=== PATIENT | male | born 1945 | race Caucasian/White ===

== ENCOUNTER 2021-07-14 07:58 | Emergency (ER) | payer MEDICARE ==
[2021-07-14 08:06] VITALS: BP 177/92; PULSE 86; RESP 18; TEMP 97.5
[2021-07-14] MEDS ORDERED: DIPH,PERTUS(ACELL)TETVAC-LF 0.5 ML VIAL IM ONE (08:12)
--- NOTE | 2021-07-14 08:21 | ED ---
General Adult HPI - General Chief complaint: Fall Stated complaint: Fall/Lip Lac Time Seen by Provider: 07/14/21 08:00 Source: patient Mode of arrival: ambulatory Limitations: no limitations - History of Present Illness Initial comments: Dictation was produced using [employer] dictation software. please excuse any grammatical, word or spelling errors. Chief Complaint: 75 year old male presents with lower lip laceration History of Present Illness: Patient is 75-year-old male presents to the emergency department for lower lip laceration. Patient states he tripped over some ice and fell off the porch. He struck his face on a solid object. Patient noticed that his lower lip was split open. Patient noted some bleeding. Came to the emergency department. The event happened approximately 2 hours prior to arrival. Patient does not know when his last tetanus shot was. States that he has some knee pain but is not worried about his knee pain. States that he felt his knees. He is able to ambulate. The ROS documented in this emergency department record has been reviewed and confirmed by me. Those systems with pertinent positive or negative responses have been documented in the HPI. All other systems are other negative and/or noncontributory. PHYSICAL EXAM: General Impression: Alert and oriented x3, not in acute distress HEENT: Normocephalic atraumatic, extra-ocular movements intact, pupils equal and reactive to light bilaterally, mucous membranes moist. Face: There is a complex lower lip laceration. In total measures approximately 12 cm area there is a vertical laceration and a lateral horizontal laceration that involves the vermilion border Cardiovascular: Heart regular rate and rhythm Chest: Able to complete full sentences, no retractions, no tachypnea Motor: no focal deficits noted Neurological: CN II-XII grossly intact, no focal motor or sensory deficits noted Skin: Intact with no visualized rashes Psych: Normal affect and mood ED course: 75-year-old male presents to the emergency department with complex lower lip laceration. Vital signs upon arrival are within acceptable limits. Case discussed with Dr. Velasco, on-call ENT who says that they do not do any soft tissue call. States that if oral surgery or general surgery does not want to repair it that patient should be transferred. Spoke with oral surgery, Dr. Pritchard states that this is not within his area of expertise. Case is discussed with [facility] doctor, Dr. Whatley. They do have facial plastics on-call there that would be willing to repair the laceration and establish care. Patient is agreeable plan. is at the bedside and will drive patient on to [facility]. They're given directions o f how to get down there. - Related Data Home Medications Medication Instructions Recorded Confirmed Aspirin [Adult Low Dose Aspirin EC] 81 mg PO DIRECTED 07/16/15 07/16/15 Benazepril HCl [Lotensin] 40 mg PO DAILY 07/16/15 07/19/15 Iron(Dose Unknown) 1 tab PO DAILY 07/16/15 07/16/15 amLODIPine BESYLATE [Norvasc] 10 mg PO DAILY 07/16/15 07/19/15 Previous Rx's Medication Instructions Recorded Clindamycin HCl 300 mg PO Q12HR #20 cap 07/19/15 Hydrocodone/Acetaminophen [[place] 1 - 2 each PO Q6HR PRN #40 tab 07/19/15 5-325] Allergies Allergy/AdvReac Type Severity Reaction Status Date / Time No Known Allergies Allergy Verified 07/14/21 08:05 Review of Systems ROS Statement: Those systems with pertinent positive or pertinent negative responses have been documented in the HPI. ROS Other: All systems not noted in ROS Statement are negative. Past Medical History Past Medical History: Cancer, Hypertension, Skin Disorder Additional Past Medical History / Comment(s): arrythmia, varicose veins, arthritis, skin cancer History of Any Multi-Drug Resistant Organisms: None Reported Past Surgical History: Tonsillectomy Additional Past Surgical History / Comment(s): removal of skin cancer, Past Anesthesia/Blood Transfusion Reactions: No Reported Reaction Past Psychological History: No Psychological Hx Reported Smoking Status: Never smoker Past Alcohol Use History: Rare Past Drug Use History: None Reported - Past Family History Mother Family Medical History: No Reported History General Exam Limitations: no limitations Course Vital Signs 07/14/21 08:01 Temperature 97.5 F L Pulse Rate 86 Respiratory 18 Rate Blood Pressure 177/92 O2 Sat by Pulse 94 L Oximetry Disposition Clinical Impression: Lip laceration Disposition: OTHER INSTITUTION NOT DEFINED Condition: Fair Referrals: None,Stated [Primary Care Provider] - 1-2 days - Out of Hospital Transfer - Req. Specs Out of Hospital Transfer - Requested Specifics: Other Emergency [facility] ([facility])
[2021-07-14] MEDS ORDERED: LIDOCAINE 1%-EPI 1:100,000 20 ML VIAL SQ STA (08:39)
== END 2021-07-14 10:03 | disposition other institution (70) ==
LOC: EC 07:58
DX: S01.511A Laceration without foreign body of lip, initial encounter (principal); Z79.899 Other long term (current) drug therapy; W13.0XXA Fall from, out of or through balcony, initial encounter
CPT/HCPCS: 90471; 90715; 99284

== ENCOUNTER 2022-06-21 14:44 | Inpatient (IN) | payer MEDICARE, OTHER ==
--- NOTE | 2022-06-21 17:05 | XR ---
EXAMINATION TYPE: XR chest 2V DATE OF EXAM: 06/21/2022 COMPARISON: NONE HISTORY: Short of breath TECHNIQUE: FINDINGS: There is mild pulmonary congestion. Heart is slightly enlarged. There is blunting of the co stophrenic angles. There is poor inspiration. IMPRESSION: Mild congestive heart failure with small pleural effusions and basilar atelectasis.
--- NOTE | 2022-06-21 17:59 | ED ---
SOB HPI - General Chief Complaint: Shortness of Breath Stated Complaint: TOMÁS Time Seen by Provider: 06/21/22 17:27 Source: patient, RN notes reviewed Mode of arrival: wheelchair Limitations: no limitations - History of Present Illness Initial Comments: 76-year-old male with no prior history of heart or lung disease who states he had COVID-19 approximately 2 weeks ago he states since that time though he started developing worsening shortness of breath exertional dyspnea orthopnea a slight cough with clear phlegm he also has peripheral edema but this is not new to him. No palpitations no fevers chills nausea vomiting sweats no other symptoms other than decreased oral intake and decreased appetite. MD Complaint: shortness of breath - Related Data Home Medications Medication Instructions Recorded Confirmed Aspirin [Adult Low Dose Aspirin EC] 81 mg PO DIRECTED 07/16/15 07/16/15 Benazepril HCl [Lotensin] 40 mg PO DAILY 07/16/15 07/19/15 Iron(Dose Unknown) 1 tab PO DAILY 07/16/15 07/16/15 amLODIPine BESYLATE [Norvasc] 10 mg PO DAILY 07/16/15 07/19/15 Previous Rx's Medication Instructions Recorded Hydrocodone/Acetaminophen [[place] 1 - 2 each PO Q6HR PRN #40 tab 07/19/15 5-325] clindamycin HCL [Clindamycin HCl] 300 mg PO Q12HR #20 cap 07/19/15 Allergies Allergy/AdvReac Type Severity Reaction Status Date / Time No Known Allergies Allergy Verified 07/14/21 08:05 Review of Systems ROS Statement: Those systems with pertinent positive or pertinent negative responses have been documented in the HPI. ROS Other: All systems not noted in ROS Statement are negative. Past Medical History Past Medical History: Cancer, Hypertension, Skin Disorder Additional Past Medical History / Comment(s): arrythmia, varicose veins, arthritis, skin cancer History of Any Multi-Drug Resistant Organisms: None Reported Past Surgical History: Tonsillectomy Additional Past Surgical History / Comment(s): removal of skin cancer, Past Anesthesia/Blood Transfusion Reactions: No Reported Reaction Past Psychological History: No Psychological Hx Reported Smoking Status: Never smoker Past Alcohol Use History: Rare Past Drug Use History: None Reported - Past Family History Mother Family Medical History: No Reported History General Exam - General Exam Comments Initial Comments: This is a well-developed well-nourished awake alert oriented 4 male Limitations: no limitations General appearance: alert, in no apparent distress Head exam: Present: atraumatic, normocephalic, normal inspection Eye exam: Present: normal appearance, PERRL, EOMI. Absent: scleral icterus, conjunctival injection, periorbital swelling ENT exam: Present: normal exam, mucous membranes moist Neck exam: Present: normal inspection, full ROM, other (No stridor JVD or bruits). Absent: tenderness, meningismus, lymphadenopathy Respiratory exam: Present: decreased breath sounds. Absent: respiratory distress, wheezes, rales, rhonchi, stridor Cardiovascular Exam: Present: tachycardia. Absent: systolic murmur, diastolic murmur, rubs, gallop, clicks GI/Abdominal exam: Present: soft, normal bowel sounds. Absent: distended, tenderness, guarding, rebound, rigid Extremities exam: Present: full ROM, normal capillary refill, pedal edema. Absent: tenderness, joint swelling, calf tenderness Back exam: Present: normal inspection Neurological exam: Present: alert, oriented X3, CN II-XII intact Psychiatric exam: Present: normal affect, normal mood Skin exam: Present: warm, dry, intact, normal color. Absent: rash Course Vital Signs 06/21/22 06/21/22 06/21/22 16:35 17:41 18:49 Temperature 97.8 F Pulse Rate 96 129 H Pulse Rate [ Marketing Administrative Assistant ] Respiratory 24 20 22 Rate Blood Pressure 133/97 Blood Pressure [Left Arm] O2 Sat by Pulse 93 L 95 Oximetry 06/21/22 06/21/22 06/21/22 18:50 19:00 19:55 Temperature Pulse Rate 137 H 124 H Pulse Rate [ 103 H Marketing Administrative Assistant ] Respiratory 22 20 22 Rate Blood Pressure 121/98 Blood Pressure 110/91 [Left Arm] O2 Sat by Pulse 94 L 87 L Oximetry 06/21/22 19:57 Temperature Pulse Rate Pulse Rate [ Marketing Administrative Assistant ] Respiratory Rate Blood Pressure Blood Pressure [Left Arm] O2 Sat by Pulse 95 Oximetry - Reevaluation(s) Reevaluation #1: 06/21/22 20:19 I did have several discussions with the patient family regarding findings patient does have evidence of A. fib RVR with his new onset as well as CHF with bilateral pleural effusions. Also elevated d-dimer with no CT evidence of pulmonary embolus. Medical Decision Making - Medical Decision Making Did reevaluate patient on multiple occasions and did discuss the findings with the patient family patient has evidence of new onset A. fib with RVR also CHF wi th right lateral pleural effusions elevated d-dimer however the CAT scan is negative for evidence of pulmonary emboli also mildly elevated troponin. Patient did respond to medication the heart rate has improved to the low 100s to the high 90s. Patient be admitted with cardiology consultation. Ultrasound of the lower extremities is ordered. I did discuss the case with Dr. Thomson. - Lab Data Result diagrams: 06/21/22 17:58 06/21/22 17:58 Lab Results 06/21/22 06/21/22 06/21/22 Range/Units 17:58 17:58 17:58 WBC 8.7 (3.8-10.6) k/uL RBC 5.09 (4.30-5.90) m/uL Hgb 17.3 (13.0-17.5) gm/dL Hct 50.6 (39.0-53.0) % MCV 99.4 (80.0-100.0) fL MCH 33.9 (25.0-35.0) pg MCHC 34.1 (31.0-37.0) g/dL RDW 14.9 (11.5-15.5) % Plt Count 193 (150-450) k/uL MPV 8.5 Neutrophils % 84 % Lymphocytes % 8 % Monocytes % 4 % Eosinophils % 0 % Basophils % 0 % Neutrophils # 7.3 (1.3-7.7) k/uL Lymphocytes # 0.7 L (1.0-4.8) k/uL Monocytes # 0.4 (0-1.0) k/uL Eosinophils # 0.0 (0-0.7) k/uL Basophils # 0.0 (0-0.2) k/uL Macrocytosis Slight PT 11.5 (9.0-12.0) sec INR 1.1 (<1.2) APTT 22.7 (22.0-30.0) sec D-Dimer 4.47 H (<0.60) mg/L FEU Sodium 139 (137-145) mmol/L Potassium 4.4 (3.5-5.1) mmol/L Chloride 106 (98-107) mmol/L Carbon Dioxide 28 (22-30) mmol/L Anion Gap 5 mmol/L BUN 27 H (9-20) mg/dL Creatinine 0.93 (0.66-1.25) mg/dL Est GFR (CKD-EPI)AfAm >90 (>60 ml/min/1.73 sqM) Est GFR (CKD-EPI)NonAf 79 (>60 ml/min/1.73 sqM) Glucose 145 H (74-99) mg/dL Plasma Lactic Acid Hernan (0.7-2.0) mmol/L Calcium 10.7 H (8.4-10.2) mg/dL Magnesium 2.0 (1.6-2.3) mg/dL Total Bilirubin 0.8 (0.2-1.3) mg/dL AST 24 (17-59) U/L ALT 23 (4-49) U/L Alkaline Phosphatase 89 (38-126) U/L Troponin I (0.000-0.034) ng/mL NT-Pro-B Natriuret Pep pg/mL Total Protein 7.0 (6.3-8.2) g/dL Albumin 4.1 (3.5-5.0) g/dL 06/21/22 06/21/22 06/21/22 Range/Units 17:58 17:58 17:58 WBC (3.8-10.6) k/uL RBC (4.30-5.90) m/uL Hgb (13.0-17.5) gm/dL Hct (39.0-53.0) % MCV (80.0-100.0) fL MCH (25.0-35.0) pg MCHC (31.0-37.0) g/dL RDW (11.5-15.5) % Plt Count (150-450) k/uL MPV Neutrophils % % Lymphocytes % % Monocytes % % Eosinophils % % Basophils % % Neutrophils # (1.3-7.7) k/uL Lymphocytes # (1.0-4.8) k/uL Monocytes # (0-1.0) k/uL Eosinophils # (0-0.7) k/uL Basophils # (0-0.2) k/uL Macrocytosis PT (9.0-12.0) sec INR (<1.2) APTT (22.0-30.0) sec D-Dimer (<0.60) mg/L FEU Sodium (137-145) mmol/L Potassium (3.5-5.1) mmol/L Chloride (98-107) mmol/L Carbon Dioxide (22-30) mmol/L Anion Gap mmol/L BUN (9-20) mg/dL Creatinine (0.66-1.25) mg/dL Est GFR (CKD-EPI)AfAm (>60 ml/min/1.73 sqM) Est GFR (CKD-EPI)NonAf (>60 ml/min/1.73 sqM) Glucose (74-99) mg/dL Plasma Lactic Acid Hernan 1.2 (0.7-2.0) mmol/L Calcium (8.4-10.2) mg/dL Magnesium (1.6-2.3) mg/dL Total Bilirubin (0.2-1.3) mg/dL AST (17-59) U/L ALT (4-49) U/L Alkaline Phosphatase (38-126) U/L Troponin I 0.045 H* (0.000-0.034) ng/mL NT-Pro-B Natriuret Pep 2650 pg/mL Total Protein (6.3-8.2) g/dL Albumin (3.5-5.0) g/dL - EKG Data -: EKG Interpreted by Co EKG Comments: Atrial fibrillation with a rapid ventricular response rate 123 QRS 170 QT since QTC 339/412 left exodeviation right bundle-branch block minimal voltage criteria for LVH - Radiology Data Radiology results: image reviewed (Did review the imaging x-ray shows evidence of CHF with pleural effusions CAT scan negative for evidence of pulmonary emboli however the same findings as he x-ray.) Critical Care Time Critical Care Time: Yes Total Critical Care Time: 45 Critical Care Time: Critical care time includes initial presentation with history physical labs x- rays multiple reevaluation patient responsive therapy review of old charting was available discussed with the patient multiple occasions discussion with the main physician admission orders and documentation of the above Disposition Clinical Impression: Rapid atrial fibrillation, Congestive heart failure (CHF), Elevated d-dimer, Elevated troponin, Peripheral edema, Exertional dyspnea Disposition: ADMITTED IP TO THIS [facility] Condition: Fair Referrals: Daivd Moe MD [Primary Care Provider] - 1-2 days Decision Date: 06/21/22 Decision Time: 20:00
[2022-06-21 18:25] LABS: Basophils % (A) 0 %; Eosinophils % (A) 0 %; HCT 50.6 % (39.0-53.0); HGB 17.3 gm/dL (13.0-17.5); Lymphocytes # (A) 0.7 k/uL (1.0-4.8); Lymphocytes % (A) 8 %; MCH 33.9 pg (25.0-35.0); MCHC 34.1 g/dL (31.0-37.0); MCV 99.4 fL (80.0-100.0); Macrocytosis Slight; Mean Platelet Volume 8.5; Monocytes # (A) 0.4 k/uL (0-1.0); Monocytes % (A) 4 %; Neutrophils # (A) 7.3 k/uL (1.3-7.7); Neutrophils % (A) 84 %; Platelet Count 193 k/uL (150-450); RBC 5.09 m/uL (4.30-5.90); RDW 14.9 % (11.5-15.5); WBC 8.7 k/uL (3.8-10.6)
[2022-06-21] MEDS ORDERED: FUROSEMIDE 10 MG/ML 4 ML VIAL IV STA (18:25)
[2022-06-21] MEDS ORDERED: METOPROLOL TARTRATE 5 MG/5 ML VIAL IVP STA (18:26)
[2022-06-21 18:29] LABS: ALT 23 U/L (4-49); AST 24 U/L (17-59); African American GFR (CKD) >90 (>60 ml/min/1.73 sqM); Albumin 4.1 g/dL (3.5-5.0); Alkaline Phosphatase 89 U/L (38-126); Anion Gap 5 mmol/L; Blood Urea Nitrogen 27 mg/dL (9-20); Calcium 10.7 mg/dL (8.4-10.2); Carbon Dioxide 28 mmol/L (22-30); Chloride 106 mmol/L (98-107); Glucose 145 mg/dL (74-99); Non-African American GFR(CKD) 79 (>60 ml/min/1.73 sqM); Potassium 4.4 mmol/L (3.5-5.1); Sodium 139 mmol/L (137-145); Total Bilirubin 0.8 mg/dL (0.2-1.3)
[2022-06-21 18:40] LABS: INR 1.1 (<1.2); Partial Thromboplastin Time 22.7 sec (22.0-30.0); Prothrombin Time 11.5 sec (9.0-12.0)
--- NOTE | 2022-06-21 19:34 | CT ---
EXAMINATION TYPE: CT angio chest DATE OF EXAM: 06/21/2022 COMPARISON: None HISTORY: PE suspected CT DLP: 873.5 mGycm Automated exposure control for dose reduction was used. CONTRAST: Performed with IV Contrast, patient injected with 100cc mL of Isovue 370. Images obtained from the thoracic inlet to the diaphragm with the IV contrast. There are Three-D post processed images. There are bilateral moderate pleural effusions. Heart is enlarged. No pericardial effusion. There is some infiltrate and atelectasis at both lung bases. There is no evidence of filling defect in the pulmonary arteries. Thoracic aorta is intact. No aneurysm or dissection. No mediastinal adenopathy. There are no hilar ma sses. Thoracic spine is intact. No compression fracture. Sternum is intact. IMPRESSION: No evidence of pulmonary embolism. Cardiomegaly with pleural effusions and mild infiltrate and atelec tasis at the lung bases. This could be chronic congestive heart failure.
[2022-06-21] MEDS ORDERED: HEPARIN SODIUM 1,000 UN/ML (10ML VL) IV ONE (20:19)
[2022-06-21] MEDS ORDERED: HEPARIN SODIUM 1,000 UN/ML (10ML VL) IV PRN (20:19)
[2022-06-21] MEDS ORDERED: ASPIRIN 325 MG TAB PO STA (20:34)
[2022-06-21] MEDS: HEPARIN SOD,PORK IN 0.45% NACL 25,000 UNIT in 0.45% NACL 1 250ML.BAG IV SCH (20:58)
[2022-06-21 21:58] LABS: INR 1.1 (<1.2); Prothrombin Time 11.9 sec (9.0-12.0)
--- NOTE | 2022-06-21 22:00 | US ---
EXAMINATION TYPE: US venous doppler duplex LE BI DATE OF EXAM: 06/21/2022 8:16 PM COMPARISON: NONE CLINICAL HISTORY: DVT suspected. Covid 2 weeks ago. Elevated ddimer. Bilateral leg swelling. No re dness. SIDE PERFORMED: Bilateral TECHNIQUE: The lower extremity deep venous system is examined utilizing real time linear array sonog yumiko with graded compression, doppler sonography and color-flow sonography. VESSELS IMAGED: Common Femoral Vein Deep Femoral Vein Greater Saphenous Vein * Femoral Vein Popliteal Vein Small Saphenous Vein * Proximal Calf Veins- Limited due to swelling (* superficial vessels) Right Leg: Negative for DVT Left Leg: Negative for DVT IMPRESSION: No sign of deep vein thrombosis in both legs.
[2022-06-21] MEDS: FUROSEMIDE 10 MG/ML 4 ML VIAL IV SCH (22:09)
[2022-06-21] MEDS: NITROGLYCERIN OINT 1 INCH/GM PACKET TOPICAL SCH (22:10)
[2022-06-21 22:11] LABS: Partial Thromboplastin Time 21.4 sec (22.0-30.0)
[2022-06-21] MEDS ORDERED: HYDROcodone/APAP 5-325MG 1 EACH TAB PO PRN (22:19)
[2022-06-21 22:54] LABS: Basophils % (A) 0 %; Eosinophils % (A) 0 %; HCT 52.9 % (39.0-53.0); HGB 17.2 gm/dL (13.0-17.5); Lymphocytes # (A) 0.6 k/uL (1.0-4.8); Lymphocytes % (A) 8 %; MCH 32.8 pg (25.0-35.0); MCHC 32.5 g/dL (31.0-37.0); MCV 100.9 fL (80.0-100.0); Macrocytosis Slight; Mean Platelet Volume 8.7; Monocytes # (A) 0.5 k/uL (0-1.0); Monocytes % (A) 6 %; Neutrophils # (A) 6.3 k/uL (1.3-7.7); Neutrophils % (A) 83 %; Platelet Count 182 k/uL (150-450); RBC 5.24 m/uL (4.30-5.90); RDW 14.9 % (11.5-15.5); WBC 7.6 k/uL (3.8-10.6)
--- NOTE | 2022-06-22 00:46 | P.HPIM ---
History of Present Illness H&P Date: 06/21/22 Chief Complaint: sudden SOB 76 year old male with hypertension patient comes in after experiencing sudden onset shortness of breath, while resting doing nothing, associated with dizziness and heart racing , denies any chest pain, denies experiencing anything like this before, he admits to falls but nothing recent. denies any fever, chills, URI symptoms. He was diagnosed with COVID couple weeks ago, but claims his symptoms has since resolved. he denies any recent travel or hospital stay . denies any changes in his meds. he admits to chronic bilateral leg edema. workup in the ED showed afib with RVR, elevated trops elevated d dimer, CTA chest no acute PE , venous doppler US of the legs negative for acute DVT blood work showed mild hypercalcemia elevated trops , ProBNP, d dimer chest imaging showed pulmonary vascular congestion and small pleural effusion Review of Systems Pertinent positives as noted in HPI. All other systems were reviewed and are negative Past Medical History Past Medical History: Cancer, Hypertension, Skin Disorder Additional Past Medical History / Comment(s): arrythmia, varicose veins, arthritis, skin cancer History of Any Multi-Drug Resistant Organisms: None Reported Past Surgical History: Tonsillectomy Additional Past Surgical History / Comment(s): removal of skin cancer, Past Anesthesia/Blood Transfusion Reactions: No Reported Reaction Smoking Status: Never smoker - Past Family History Mother Family Medical History: No Reported History Additional Family Medical History / Comment(s): no reported heart disease Medications and Allergies Home Medications Medication Instructions Recorded Confirmed Type Aspirin [Adult Low Dose Aspirin EC] 81 mg PO DAILY 07/16/15 06/21/22 History amLODIPine BESYLATE [Norvasc] 10 mg PO DAILY 07/16/15 06/21/22 History Dorzolamide HCl/Pf [Dorzolamide 2% 1 drop BOTH EYES BID 06/21/22 06/21/22 History Eye Drop] Latanoprost [Latanoprost 0.005%] 1 drop BOTH EYES HS 06/21/22 06/21/22 History Losartan Potassium 100 mg PO DAILY 06/21/22 06/21/22 History Allergies Allergy/AdvReac Type Severity Reaction Status Date / Time No Known Allergies Allergy Verified 06/21/22 20:55 Physical Exam Vitals: Vital Signs Temp Pulse Pulse Resp BP BP Pulse Ox 06/21/22 22:16 97.4 F L 85 18 136/83 95 06/21/22 21:03 101 H 24 114/96 95 06/21/22 21:00 97.4 F L 85 16 136/83 95 06/21/22 19:57 95 06/21/22 19:55 103 H 22 110/91 87 L 06/21/22 19:00 124 H 20 121/98 06/21/22 18:50 137 H 22 94 L 06/21/22 18:49 129 H 22 95 06/21/22 17:41 20 06/21/22 16:35 97.8 F 96 24 133/97 93 L Intake and Output 06/21/22 06/21/22 06/22/22 14:59 22:59 06:59 Intake Total 540 Balance 540 Intake: Oral 540 Other: Weight 140.614 kg Constitutional: No acute distress, conversant, pleasant Eyes: Anicteric sclerae, moist conjunctiva, Pupils equal round reactive to light ENMT: NC/AT Oropharynx clear, no erythema, or exudates Neck: Supple, no masses, or JVD No carotid bruits No thyromegaly Lungs: decrease breath sounds at lung bases with inspiratory rales Clear to percussion Normal respiratory effort, no accessory muscle use Cardiovascular: Heart irregular No murmurs, gallops, or rubs + 2 bilateral leg peripheral edema Abdominal: Soft Nontender, no guarding, rebound or rigidity Abdomen moving with respiration Normoactive bowel sounds No hepatomegaly, No splenomegaly No palpable mass No abdominal wall hernia noted Skin: Normal temperature, tone, texture, turgor No induration No subcutaneous nodules No rash, lesions No ulcers Extremities: No digital cyanosis No clubbing Pedal pulses difficult to assess due to pedal edema , capillary refill immediate Radial pulses intact and symmetrical No calf tenderness Psychiatric: Alert and oriented to person, place Neuro Muscles Strength 4/5 in all 4 extremities Sensation to light touch grossly present throughout Cranial nerves II-XII grossly intact Lymphatics: no palpable cervical or supraclavicular , lymph nodes Results CBC & Chem 7: 06/21/22 20:50 06/21/22 17:58 Labs: Abnormal Lab Results - Last 24 Hours (Table) 06/21/22 06/21/22 06/21/22 Range/Units 17:58 17:58 17:58 MCV (80.0-100.0) fL Lymphocytes # 0.7 L (1.0-4.8) k/uL APTT (22.0-30.0) sec D-Dimer 4.47 H (<0.60) mg/L FEU BUN 27 H (9-20) mg/dL Glucose 145 H (74-99) mg/dL Calcium 10.7 H (8.4-10.2) mg/dL Troponin I (0.000-0.034) ng/mL 06/21/22 06/21/22 06/21/22 Range/Units 17:58 20:50 20:50 MCV 100.9 H (80.0-100.0) fL Lymphocytes # 0.6 L (1.0-4.8) k/uL APTT 21.4 L (22.0-30.0) sec D-Dimer (<0.60) mg/L FEU BUN (9-20) mg/dL Glucose (74-99) mg/dL Calcium (8.4-10.2) mg/dL Troponin I 0.045 H* (0.000-0.034) ng/mL 06/21/22 06/21/22 Range/Units 20:50 23:40 MCV (80.0-100.0) fL Lymphocytes # (1.0-4.8) k/uL APTT (22.0-30.0) sec D-Dimer (<0.60) mg/L FEU BUN (9-20) mg/dL Glucose (74-99) mg/dL Calcium (8.4-10.2) mg/dL Troponin I 0.046 H* 0.044 H* (0.000-0.034) ng/mL Thrombosis Risk Factor Assmnt - Choose All That Apply Any of the Below Risk Factors Present?: Yes Each Factor Represents 1 point: Obesity (BMI >25), Varicose veins Other Risk Factors: Yes Each Risk Factor Represents 3 Points: Age 75 years or older Other congenital or acquired thrombophilia - If yes, enter type in comment: No Thrombosis Risk Factor Assessment Total Risk Factor Score: 5 Thrombosis Risk Factor Assessment Level: High Risk Assessment and Plan Assessment: new onset Afib with RVR peripheral edema with fluid overload, rule out CHF plan currently rate controlled heparin infusion for afib protocol trend trops elevated d dimer , CTA chest no acute PE , venous doppler US of the legs negative for DVT arbitrator cardiology consult check echocardiogram IV lasix BID metoprolol 25 mg PO daily chronic conditions chronic pain , [place] PRN hypertension , resume home BP meds amlodipine , losartan full code DVT PPX heparin gtt for afib
[2022-06-22] MEDS ORDERED: METOPROLOL TARTRATE 25 MG TAB PO STA (00:47)
[2022-06-22 02:37] LABS: Basophils % (A) 0 %; Eosinophils % (A) 0 %; HGB 16.2 gm/dL (13.0-17.5); Lymphocytes # (A) 0.5 k/uL (1.0-4.8); Lymphocytes % (A) 7 %; MCH 33.9 pg (25.0-35.0); MCHC 33.6 g/dL (31.0-37.0); MCV 100.7 fL (80.0-100.0); Macrocytosis Slight; Mean Platelet Volume 8.3; Monocytes # (A) 0.5 k/uL (0-1.0); Monocytes % (A) 6 %; Neutrophils # (A) 6.6 k/uL (1.3-7.7); Neutrophils % (A) 84 %; Platelet Count 194 k/uL (150-450); RBC 4.77 m/uL (4.30-5.90); RDW 14.3 % (11.5-15.5); WBC 7.9 k/uL (3.8-10.6)
[2022-06-22 02:49] LABS: INR 1.2 (<1.2); Prothrombin Time 12.3 sec (9.0-12.0)
[2022-06-22] MEDS: FUROSEMIDE 10 MG/ML 4 ML VIAL IV SCH ×2 (08:57→19:53)
[2022-06-22] MEDS: ASPIRIN 81 MG PO SCH (08:58)
[2022-06-22] MEDS: NITROGLYCERIN OINT 1 INCH/GM PACKET TOPICAL SCH ×4 (08:58→19:53)
[2022-06-22] MEDS: LOSARTAN 50 MG TAB PO SCH (08:58)
[2022-06-22] MEDS: METOPROLOL SUCCINATE (ER) 25 MG TAB.ER.24H PO SCH (08:58)
[2022-06-22] MEDS: amLODIPine 10 MG TAB PO SCH (08:58)
[2022-06-22] MEDS: ASPIRIN 325 MG TAB PO SCH (08:59)
--- NOTE | 2022-06-22 13:07 | P.PN ---
Subjective Progress Note Date: 06/22/22 Principal diagnosis: SOB Hospital Course: 76-year-old with history of hypertension presenting with shortness of breath at rest, lightheadedness, palpitations. He was recently diagnosed with COVID-19 couple of weeks ago. On initial presentation, he was tachycardic, in A. fib with RVR. Lab work showed mildly elevated troponin, proBNP, d-dimer, mild hypercalcemia. CTA showed no PE, cardiomegaly with pleural effusions and mild infiltrate and atelectasis at lung bases suggesting CHF. Patient currently being treated with IV Lasix as well as rate control agents for A. fib with RVR, and anticoagulated with heparin drip. Subjective: Patient seen and examined at bedside. No acute events overnight. He claims that shortness of breath has slightly improved. Denies any chest pain, palpitations, lightheadedness, nausea, vomiting, abdominal pain, diarrhea, constipation, or urinary complaints. Pertinent positives and negatives as discussed above, a complete review of systems was performed and all other systems are negative. Vitals Signs Reviewed. General: nontoxic, no distress, appears at stated age, morbidly obese Derm: warm, dry Head: atraumatic, normocephalic, symmetric Eyes: EOMI, no lid lag, anicteric sclera Mouth: no lip lesion, mucus membranes moist Cardiovascular: S1S2 tachycardic and irregular, no murmur Lungs: CTA bilateral, no rhonchi, no rales , no accessory muscle use, on 2 L Abdominal: soft, nontender to palpation, no guarding, no appreciable organomegaly Ext: no gross muscle atrophy, no edema, no contractures Neuro: CN II-XI grossly intact, no focal neuro deficits Psych: Alert, oriented, appropriate affect Assessment and Plan: New onset atrial fibrillation with RVR Pulmonary edema, likely CHF exacerbation, unknown EF Elevated troponin Elevated d-dimer, CTA negative for PE -On heparin drip -Metoprolol -Telemetry -IV Lasix, I's and O's, daily weights -Cardiology consult -Echo pending Chronic conditions Chronic pain Hypertension -Medications reviewed and reconciled DVT ppx: Heparin drip Code status: Full code Anticipated discharge place: Home Anticipated discharge time: 1-2 days Objective - Vital Signs Vital signs: Vital Signs Temp 98.4 F 06/22/22 12:00 Pulse 91 06/22/22 12:00 Resp 20 06/22/22 12:00 BP 119/60 06/22/22 12:00 Pulse Ox 95 06/22/22 12:00 FiO2 Intake & Output 06/21/22 06/22/22 06/22/22 18:59 06:59 18:59 Intake Total 602.333 240 Output Total 475 Balance 127.333 240 Weight 140.614 kg 140.614 kg Intake: Intake, IV Titration 62.333 Amount Heparin Sod,Pork in 0.45% 62.333 NaCl 25,000 unit In 0.45 % NaCl 1 250ml.bag @ 7. 112 UNITS/KG/HR 10 mls/hr IV .Q24H [facility] Rx#: [id number] Oral 540 240 Output: Urine 475 Other: Voiding Method Toilet Toilet Urinal Urinal - Labs CBC & Chem 7: 06/22/22 02:07 06/21/22 17:58 Labs: Abnormal Lab Results - Last 24 Hours (Table) 06/21/22 06/21/22 06/21/22 Range/Units 17:58 17:58 17:58 MCV (80.0-100.0) fL Lymphocytes # 0.7 L (1.0-4.8) k/uL PT (9.0-12.0) sec INR (<1.2) APTT (22.0-30.0) sec D-Dimer 4.47 H (<0.60) mg/L FEU BUN 27 H (9-20) mg/dL Glucose 145 H (74-99) mg/dL Calcium 10.7 H (8.4-10.2) mg/dL Troponin I (0.000-0.034) ng/mL 06/21/22 06/21/22 06/21/22 Range/Units 17:58 20:50 20:50 MCV 100.9 H (80.0-100.0) fL Lymphocytes # 0.6 L (1.0-4.8) k/uL PT (9.0-12.0) sec INR (<1.2) APTT 21.4 L (22.0-30.0) sec D-Dimer (<0.60) mg/L FEU BUN (9-20) mg/dL Glucose (74-99) mg/dL Calcium (8.4-10.2) mg/dL Troponin I 0.045 H* (0.000-0.034) ng/mL 06/21/22 06/21/22 06/22/22 Range/Units 20:50 23:40 02:07 MCV (80.0-100.0) fL Lymphocytes # (1.0-4.8) k/uL PT 12.3 H (9.0-12.0) sec INR 1.2 H (<1.2) APTT 34.0 H (22.0-30.0) sec D-Dimer (<0.60) mg/L FEU BUN (9-20) mg/dL Glucose (74-99) mg/dL Calcium (8.4-10.2) mg/dL Troponin I 0.046 H* 0.044 H* (0.000-0.034) ng/mL 06/22/22 06/22/22 Range/Units 02:07 08:28 MCV 100.7 H (80.0-100.0) fL Lymphocytes # 0.5 L (1.0-4.8) k/uL PT (9.0-12.0) sec INR (<1.2) APTT 46.0 H (22.0-30.0) sec D-Dimer (<0.60) mg/L FEU BUN (9-20) mg/dL Glucose (74-99) mg/dL Calcium (8.4-10.2) mg/dL Troponin I (0.000-0.034) ng/mL
--- NOTE | 2022-06-22 13:24 | P.CRDCN ---
History of Present Illness History of present illness: HISTORY OF PRESENTING ILLNESS Patient is pleasant 76-year-old male with history of obesity, new-onset atrial fibrillation, recent COVID-19 infection 3 weeks ago who presents secondary to increasing shortness breath as well as lower extremity edema and loss of taste over last 2 weeks. He states he did see his PCP who thought some of this may be related to the [facility]. He denies any prior history of lower extremity edema. He admits to shortness breath as well as some orthopnea. Denies any chest pain however has been having some pressure/tightness. No history of tobacco, alcohol, no family history of CAD. No prior history of atrial fibrillation and no history of stroke. White blood cell count 8.7, hemoglobin 17.3, d-dimer 4.4, creatinine 0.9, troponin 0.043, proBNP 2600, Chest CTA showed no PE with cardiomegaly and pleural effusions consistent with congestive heart failure. EKG showing atrial fibrillation, right bundle branch block with nonspecific minimal ST depressions REVIEW OF SYSTEMS At the time of my exam: CONSTITUTIONAL: Denies fever or chills. CARDIOVASCULAR: +chest pain, +shortness of breath, +orthopnea, no PND or palpitations. RESPIRATORY: Denies cough. GASTROINTESTINAL: Denies abdominal pain, diarrhea, constipation, nausea or vomiting. MUSCULOSKELETAL: Denies myalgias. NEUROLOGIC: Denies numbness, tingling or weakness. ENDOCRINE: Denies fatigue, weight change, polydipsia or polyurina. GENITOURINARY: Denies burning, hematuria or urgency with micturation. HEMATOLOGIC: Denies history of anemia or bleeding. PHYSICAL EXAMINATION Vital signs reviewed. CONSTITUTIONAL: No apparent distress. HEENT: Head is normocephalic. Pupils are equal, round. Sclerae anicteric. Mucous membranes of the mouth are moist. No JVD. No carotid bruit. CHEST EXAMINATION: Lungs are clear to auscultation. No chest wall tenderness is noted on palpation or with deep breathing. HEART EXAMINATION: Irregular rate and rhythm. S1, S2 heard. No murmurs, gallops or rub. ABDOMEN: Soft, nontender. Positive bowel sounds. EXTREMITIES: 2+ peripheral pulses, 3+ lower extremity edema and no calf tenderness. NEUROLOGIC EXAMINATION: Patient is awake, alert and oriented x3. ASSESSMENT 1. Acute on chronic heart failure unknown systolic versus diastolic 2. Atrial fibrillation with RVR. Symptomatic with heart failure 3. Recent COVID-19 infection 3 weeks ago 4. Hypertension 5. Atypical chest pressure 6. Minimal troponin elevations likely related to heart failure PLAN Minimally elevated troponins appear related to congestive heart failure. Continue with diuretics. Monitor creatinine closely. 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 Check 2-D echo. Discussed role of anticoagulation and patient is agreeable. Continue heparin drip for now and likely transition over to a NOAC. Start amiodarone and attempt rhythm control given patient significantly symptomatic from his Afib. Possible ablation as an outpt. [] Past Medical History Past Medical History: Cancer, Hypertension, Skin Disorder Additional Past Medical History / Comment(s): arrythmia, varicose veins, arthritis, skin cancer History of Any Multi-Drug Resistant Organisms: None Reported Past Surgical History: Tonsillectomy Additional Past Surgical History / Comment(s): removal of skin cancer, Past Anesthesia/Blood Transfusion Reactions: No Reported Reaction Smoking Status: Never smoker - Past Family History Mother Family Medical History: No Reported History Additional Family Medical History / Comment(s): no reported heart disease Medications and Allergies Home Medications Medication Instructions Recorded Confirmed Type Aspirin [Adult Low Dose Aspirin EC] 81 mg PO DAILY 07/16/15 06/21/22 History amLODIPine BESYLATE [Norvasc] 10 mg PO DAILY 07/16/15 06/21/22 History Dorzolamide HCl/Pf [Dorzolamide 2% 1 drop BOTH EYES BID 06/21/22 06/21/22 History Eye Drop] Latanoprost [Latanoprost 0.005%] 1 drop BOTH EYES HS 06/21/22 06/21/22 History Losartan Potassium 100 mg PO DAILY 06/21/22 06/21/22 History Allergies Allergy/AdvReac Type Severity Reaction Status Date / Time No Known Allergies Allergy Verified 06/21/22 20:55 Physical Exam Vitals: Vital Signs Temp Pulse Pulse Resp BP BP Pulse Ox 06/22/22 12:00 98.4 F 91 20 119/60 95 06/22/22 09:10 98.3 F 113 H 20 133/75 92 L 06/22/22 04:00 97.9 F 115 H 18 108/74 95 06/22/22 00:00 97.9 F 113 H 20 131/85 91 L 06/21/22 22:16 97.4 F L 85 18 136/83 95 06/21/22 21:03 101 H 24 114/96 95 06/21/22 21:00 97.4 F L 85 16 136/83 95 06/21/22 19:57 95 06/21/22 19:55 103 H 22 110/91 87 L 06/21/22 19:00 124 H 20 121/98 06/21/22 18:50 137 H 22 94 L 06/21/22 18:49 129 H 22 95 06/21/22 17:41 20 06/21/22 16:35 97.8 F 96 24 133/97 93 L Intake and Output 06/21/22 06/22/22 06/22/22 22:59 06:59 14:59 Intake Total 540 62.333 240 Output Total 475 Balance 540 -412.667 240 Intake: Intake, IV Titration 62.333 Amount Heparin Sod,Pork in 0.45% 62.333 NaCl 25,000 unit In 0.45 % NaCl 1 250ml.bag @ 7. 112 UNITS/KG/HR 10 mls/hr IV .Q24H [facility] Rx#: [id number] Oral 540 240 Output: Urine 475 Other: Voiding Method Toilet Toilet Urinal Urinal Weight 140.614 kg Results 06/22/22 02:07 06/21/22 17:58 Cardiac Enzymes 06/21/22 06/21/22 06/21/22 Range/Units 17:58 17:58 20:50 AST 24 (17-59) U/L Troponin I 0.045 H* 0.046 H* (0.000-0.034) ng/mL 06/21/22 Range/Units 23:40 AST (17-59) U/L Troponin I 0.044 H* (0.000-0.034) ng/mL Coagulation 06/21/22 06/21/22 06/22/22 Range/Units 17:58 20:50 02:07 PT 11.5 11.9 12.3 H (9.0-12.0) sec APTT 22.7 21.4 L 34.0 H (22.0-30.0) sec 06/22/22 Range/Units 08:28 PT (9.0-12.0) sec APTT 46.0 H (22.0-30.0) sec CBC 06/21/22 06/21/22 06/22/22 Range/Units 17:58 20:50 02:07 WBC 8.7 7.6 7.9 (3.8-10.6) k/uL RBC 5.09 5.24 4.77 (4.30-5.90) m/uL Hgb 17.3 17.2 16.2 (13.0-17.5) gm/dL Hct 50.6 52.9 48.0 (39.0-53.0) % Plt Count 193 182 194 (150-450) k/uL Comprehensive Metabolic Panel 06/21/22 Range/Units 17:58 Sodium 139 (137-145) mmol/L Potassium 4.4 (3.5-5.1) mmol/L Chloride 106 (98-107) mmol/L Carbon Dioxide 28 (22-30) mmol/L BUN 27 H (9-20) mg/dL Creatinine 0.93 (0.66-1.25) mg/dL Glucose 145 H (74-99) mg/dL Calcium 10.7 H (8.4-10.2) mg/dL AST 24 (17-59) U/L ALT 23 (4-49) U/L Alkaline Phosphatase 89 (38-126) U/L Total Protein 7.0 (6.3-8.2) g/dL Albumin 4.1 (3.5-5.0) g/dL Current Medications Generic Name Dose Route Start Last Admin Trade Name Freq PRN Reason Stop Dose Admin Hydrocodone Bitart/Acetaminophen 1 each 06/21/22 22:19 Hydrocodone/Apap 5-325mg 1 Each Tab PO Q4HR PRN Pain Amlodipine Besylate 10 mg 06/22/22 09:00 06/22/22 08:58 Amlodipine 10 Mg Tab PO 10 mg DAILY JEFF Administration Aspirin 325 mg 06/22/22 09:00 06/22/22 08:59 Aspirin 325 Mg Tab PO Not Given DAILY JEFF Aspirin 81 mg 06/22/22 09:00 06/22/22 08:58 Aspirin 81 Mg PO 81 mg DAILY JEFF Administration Furosemide 40 mg 06/21/22 20:45 06/22/22 08:57 Furosemide 10 Mg/Ml 4 Ml Vial IV 40 mg Q12H JEFF Administration Heparin Sodium (Porcine) 0 unit 06/21/22 20:19 Heparin Sodium 1,000 Un/Ml (10ml Vl) IV PER PROTOCOL PRN Low PTT Protocol Heparin Sodium/Sodium Chloride 250 mls @ 10 mls/hr 06/21/22 20:30 06/22/22 03:12 25,000 unit/ Sodium Chloride IV 10.112 units/kg/hr .Q24H [facility] 14.219 mls/hr Titration Protocol 7.112 UNITS/KG/HR Losartan Potassium 100 mg 06/22/22 09:00 06/22/22 08:58 Losartan 50 Mg Tab PO 100 mg DAILY JEFF Administration Metoprolol Succinate 25 mg 06/22/22 09:00 06/22/22 08:58 Metoprolol Succinate (Er) 25 Mg Tab.Er.24h PO 25 mg DAILY JEFF Administration Nitroglycerin 1 inch 06/21/22 22:00 06/22/22 12:13 Nitroglycerin Oint 1 Inch/Gm Packet TOPICAL 1 inch QID JEFF Administration Intake and Output 06/21/22 06/22/22 06/22/22 22:59 06:59 14:59 Intake Total 540 62.333 240 Output Total 475 Balance 540 -412.667 240 Intake: Intake, IV Titration 62.333 Amount Heparin Sod,Pork in 0.45% 62.333 NaCl 25,000 unit In 0.45 % NaCl 1 250ml.bag @ 7. 112 UNITS/KG/HR 10 mls/hr IV .Q24H [facility] Rx#: [id number] Oral 540 240 Output: Urine 475 Other: Voiding Method Toilet Toilet Urinal Urinal Weight 140.614 kg 06/22/22 02:07 06/21/22 17:58
[2022-06-22] MEDS: HEPARIN SOD,PORK IN 0.45% NACL 25,000 UNIT in 0.45% NACL 1 250ML.BAG IV SCH (20:00)
[2022-06-23] MEDS: ASPIRIN 325 MG TAB PO SCH (08:38)
[2022-06-23] MEDS: amLODIPine 10 MG TAB PO SCH (09:09)
[2022-06-23] MEDS: FUROSEMIDE 10 MG/ML 4 ML VIAL IV SCH ×2 (09:09→21:09)
[2022-06-23] MEDS: LOSARTAN 50 MG TAB PO SCH (09:09)
[2022-06-23] MEDS: METOPROLOL SUCCINATE (ER) 25 MG TAB.ER.24H PO SCH (09:09)
[2022-06-23] MEDS: ASPIRIN 81 MG PO SCH (09:09)
[2022-06-23] MEDS: HEPARIN SOD,PORK IN 0.45% NACL 25,000 UNIT in 0.45% NACL 1 250ML.BAG IV SCH (09:10)
[2022-06-23] MEDS: NITROGLYCERIN OINT 1 INCH/GM PACKET TOPICAL SCH ×4 (09:10→21:10)
[2022-06-23 11:08] LABS: Magnesium 1.9 mg/dL (1.6-2.3); Potassium 3.9 mmol/L (3.5-5.1)
--- NOTE | 2022-06-23 11:42 | P.PN ---
Subjective Progress Note Date: 06/23/22 Principal diagnosis: SOB Hospital Course: 76-year-old with history of hypertension presenting with shortness of breath at rest, lightheadedness, palpitations. He was recently diagnosed with COVID-19 couple of weeks ago. On initial presentation, he was tachycardic, in A. fib with RVR. Lab work showed mildly elevated troponin, proBNP, d-dimer, mild hypercalcemia. CTA showed no PE, cardiomegaly with pleural effusions and mild infiltrate and atelectasis at lung bases suggesting CHF. Patient currently being treated with IV Lasix as well as rate control agents for A. fib with RVR, and anticoagulated with heparin drip. Subjective: Patient seen and examined at bedside. No acute events overnight. He claims that shortness of breath has slightly improved. Denies any chest pain, palpitations, lightheadedness, nausea, vomiting, abdominal pain, diarrhea, constipation, or urinary complaints. Pertinent positives and negatives as discussed above, a complete review of systems was performed and all other systems are negative. Vitals Signs Reviewed. General: nontoxic, no distress, appears at stated age, morbidly obese Derm: warm, dry Head: atraumatic, normocephalic, symmetric Eyes: EOMI, no lid lag, anicteric sclera Mouth: no lip lesion, mucus membranes moist Cardiovascular: S1S2 tachycardic and irregular, no murmur Lungs: CTA bilateral, no rhonchi, no rales , no accessory muscle use, on 2 L Abdominal: soft, nontender to palpation, no guarding, no appreciable organomegaly Ext: no gross muscle atrophy, no edema, no contractures Neuro: CN II-XI grossly intact, no focal neuro deficits Psych: Alert, oriented, appropriate affect Assessment and Plan: New onset atrial fibrillation with RVR Pulmonary edema, likely CHF exacerbation, unknown EF Elevated troponin Elevated d-dimer, CTA negative for PE -On heparin drip -Metoprolol -Telemetry -IV Lasix, I's and O's, daily weights -Cardiology consult -Echo pending -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 Started amiodarone per cardiology recommendations. May need outpatient ablation. Chronic conditions Chronic pain Hypertension -Medications reviewed DVT ppx: Heparin drip Code status: Full code Anticipated discharge place: Home Anticipated discharge time: 1-2 days Objective - Vital Signs Vital signs: Vital Signs Temp 98.0 F 11/28/22 08:00 Pulse 60 06/23/22 08:00 Resp 19 06/23/22 08:00 BP 123/80 06/23/22 08:00 Pulse Ox 94 L 06/23/22 08:00 FiO2 21 06/22/22 20:36 Intake & Output 06/22/22 06/23/22 06/23/22 18:59 06:59 18:59 Intake Total 545.667 187.217 Output Total 300 Balance 545.667 -300 187.217 Weight 135.8 kg Intake: Intake, IV Titration 187.667 187.217 Amount Heparin Sod,Pork in 0.45% 187.667 187.217 NaCl 25,000 unit In 0.45 % NaCl 1 250ml.bag @ 7. 112 UNITS/KG/HR 10 mls/hr IV .Q24H [facility] Rx#: [id number] Oral 358 Output: Urine 300 Other: Voiding Method Toilet Toilet Toilet Urinal Urinal Urinal # Voids 3 - Labs CBC & Chem 7: 06/22/22 02:07 06/23/22 09:19 Labs: Abnormal Lab Results - Last 24 Hours (Table) 06/23/22 06/23/22 Range/Units 09:19 09:19 APTT 49.9 H (22.0-30.0) sec Carbon Dioxide 32 H (22-30) mmol/L BUN 35 H (9-20) mg/dL Glucose 193 H (74-99) mg/dL Microbiology - Last 24 Hours (Table) 06/21/22 17:58 Blood Culture - Preliminary Blood No Growth after 24 hours 06/21/22 17:58 Blood Culture - Preliminary Blood No Growth after 24 hours
--- NOTE | 2022-06-23 12:30 | CA ---
Transthoracic Echo Report Name: Praneeth Ely Age: 76 Gender: M : 1945 Exam Date: 06/23/2022 11:32 Exam Location: [place] [facility] Ht (in): 72 Wt (lb): 299 Ordering Physician: Nigel Becerra MD Attending/Referring Phys: Registered Nurse Cardiovascular Icu Magda Noguera RDCS Procedure CPT: Indications: Heart failure Cardiac Hx: Technical Quality: Fair Contrast 1: Total Dose (mL): Contrast 2: Total Dose (mL): MEASUREMENTS (Male / Female) Normal Values 2D ECHO LV Diastolic Diameter PLAX 4.7 cm 4.2 - 5.9 / 3.9 - 5.3 cm LV Systolic Diameter PLAX 3.8 cm IVS Diastolic Thickness 1.6 cm 0.6 - 1.0 / 0.6 - 0.9 cm LVPW Diastolic Thickness 1.4 cm 0.6 - 1.0 / 0.6 - 0.9 cm LV Relative Wall Thickness 0.7 RV Internal Dim ED PLAX 4.2 cm LA Systolic Diameter LX 3.5 cm 3.0 - 4.0 / 2.7 - 3.8 cm LA Volume 87.3 cm??? 18 - 58 / 22 - 52 cm??? M-MODE Aortic Root Diameter MM 3.6 cm MV E Point Septal Separation 2.0 cm AV Cusp Separation MM 2.0 cm DOPPLER AV Peak Velocity 142.2 cm/s AV Peak Gradient 8.1 mmHg MV Area PHT 6.6 cm??? MV Deceleration Time 122.8 ms TR Peak Velocity 281.7 cm/s TR Peak Gradient 31.8 mmHg Right Ventricular Systolic Press 36.0 mmHg FINDINGS Left Ventricle Left ventricular ejection fraction is estimated at 20-25 %. Left ventricular cavity size normal. Moderate concentric left ventricular hypertrophy. Right Ventricle Severe right ventricular dilatation. Mild pulmonary hypertension. Right Atrium Normal right atrial size. Left Atrium Severely increased left atrial volume. Mildly increased left atrial area. No evidence for an atrial septal defect. Mitral Valve Structurally normal mitral valve. Mild mitral regurgitation. Mitral annular calcification. Aortic Valve Trileaflet aortic valve. No aortic valve stenosis or regurgitation. Tricuspid Valve Structurally normal tricuspid valve. Mild tricuspid regurgitation. Pulmonic Valve Trace pulmonic regurgitation. Pericardium Normal pericardium. Small pericardial effusion by LV Aorta Normal size aortic root and proximal ascending aorta. CONCLUSIONS Impaired LV function with EF between 20-25% Previewed by: Dr. Boni Isaac MD (Electronically Signed) Final Date: 23 June 2022 12:29
[2022-06-23] MEDS: AMIODARONE 200 MG TAB PO SCH ×2 (13:02→21:09)
--- NOTE | 2022-06-23 15:43 | P.PN ---
Subjective Progress Note Date: 06/23/22 HISTORY OF PRESENTING ILLNESS Patient is pleasant 76-year-old male with history of obesity, new-onset atrial fibrillation, recent COVID-19 infection 3 weeks ago who presents secondary to increasing shortness breath as well as lower extremity edema and loss of taste over last 2 weeks. He states he did see his PCP who thought some of this may be related to the [facility]. He denies any prior history of lower extremity edema. He admits to shortness breath as well as some orthopnea. Denies any chest pain however has been having some pressure/tightness. No history of tobacco, alcohol, no family history of CAD. No prior history of atrial fibrillation and no history of stroke. White blood cell count 8.7, hemoglobin 17.3, d-dimer 4.4, creatinine 0.9, troponin 0.043, proBNP 2600, Chest CTA showed no PE with cardiomegaly and pleural effusions consistent with congestive heart failure. EKG showing atrial fibrillation, right bundle branch block with nonspecific minimal ST depressions 06/23 The patient is resting in the bed, he denies any chest pain or shortness of breath no palpitations. Is currently on O2 at 3 L nasal cannula does not have home O2. He remains on heparin drip which will be transitioned to NOAC. media monitor A. fib at rate of 100-110. He is currently on Toprol-XL 25 mg daily, blood pressure 123/80. BUN 35 creatinine 0.96. Patient is currently on Lasix IV 40 mg every 12 hours with good urine output and weight loss documented. He continues to have lower extremity. Echocardiogram to be obtained today. PHYSICAL EXAMINATION Vital signs reviewed. CONSTITUTIONAL: No apparent distress. HEENT: Head is normocephalic. Pupils are equal, round. Sclerae anicteric. Mucous membranes of the mouth are moist. No JVD. No carotid bruit. CHEST EXAMINATION: Lungs are clear to auscultation. No chest wall tenderness is noted on palpation or with deep breathing. HEART EXAMINATION: Irregular rate and rhythm. S1, S2 heard. No murmurs, gallops or rub. ABDOMEN: Soft, nontender. Positive bowel sounds. EXTREMITIES: 2+ peripheral pulses, 2+ lower extremity edema and no calf te nderness. NEUROLOGIC EXAMINATION: Patient is awake, alert and oriented x3. ASSESSMENT 1. Acute on chronic heart failure unknown systolic versus diastolic 2. Atrial fibrillation with RVR. 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 Recent COVID-19 infection 3 weeks ago 4. Hypertension 5. Atypical chest pressure 6. Minimal troponin elevations likely related to heart failure PLAN Continue patient on IV Lasix 40 mg every 12 hours, monitor I&O, daily weights, electrolytes and renal function Echocardiogram to be obtained today to assess cardiac structure and function Continue patient on Toprol-XL 25 mg daily, transition heparin drip to eliquis 5 mg twice daily Nurse practitioner note has been reviewed, I agree with documented findings and plan of care. Patient was seen and examined. Objective - Vital Signs Vital signs: Vital Signs Temp 98.0 F 06/23/22 08:00 Pulse 60 06/23/22 08:00 Resp 19 06/23/22 08:00 BP 123/80 06/23/22 08:00 Pulse Ox 94 L 06/23/22 08:00 FiO2 21 06/22/22 20:36 Intake & Output 06/22/22 06/23/22 06/23/22 18:59 06:59 18:59 Intake Total 545.667 187.217 Output Total 300 Balance 545.667 -300 187.217 Weight 135.8 kg Intake: Intake, IV Titration 187.667 187.217 Amount Heparin Sod,Pork in 0.45% 187.667 187.217 NaCl 25,000 unit In 0.45 % NaCl 1 250ml.bag @ 7. 112 UNITS/KG/HR 10 mls/hr IV .Q24H [facility] Rx#: [id number] Oral 358 Output: Urine 300 Other: Voiding Method Toilet Toilet Toilet Urinal Urinal Urinal # Voids 3 - Labs CBC & Chem 7: 06/22/22 02:07 06/23/22 09:19 Labs: Abnormal Lab Results - Last 24 Hours (Table) 06/23/22 06/23/22 Range/Units 09:19 09:19 APTT 49.9 H (22.0-30.0) sec Carbon Dioxide 32 H (22-30) mmol/L BUN 35 H (9-20) mg/dL Glucose 193 H (74-99) mg/dL Microbiology - Last 24 Hours (Table) 06/21/22 17:58 Blood Culture - Preliminary Blood No Growth after 24 hours 06/21/22 17:58 Blood Culture - Preliminary Blood No Growth after 24 hours
[2022-06-23] MEDS: APIXABAN 5 MG TAB PO SCH (21:09)
[2022-06-24] MEDS: amLODIPine 10 MG TAB PO SCH (08:35)
[2022-06-24] MEDS: NITROGLYCERIN OINT 1 INCH/GM PACKET TOPICAL SCH ×4 (08:35→23:08)
[2022-06-24] MEDS: LOSARTAN 50 MG TAB PO SCH (08:35)
[2022-06-24] MEDS: APIXABAN 5 MG TAB PO SCH (08:36)
[2022-06-24] MEDS: ASPIRIN 81 MG PO SCH (08:36)
[2022-06-24] MEDS: METOPROLOL SUCCINATE (ER) 25 MG TAB.ER.24H PO SCH (08:36)
[2022-06-24] MEDS: AMIODARONE 200 MG TAB PO SCH ×2 (08:36→20:47)
[2022-06-24] MEDS: FUROSEMIDE 10 MG/ML 4 ML VIAL IV SCH ×2 (08:36→20:47)
[2022-06-24] MEDS ORDERED: HEPARIN SODIUM 1,000 UN/ML (10ML VL) IV ONE (12:49)
[2022-06-24] MEDS ORDERED: HEPARIN SODIUM 1,000 UN/ML (10ML VL) IV PRN (12:49)
--- NOTE | 2022-06-24 12:58 | P.PN ---
Subjective Progress Note Date: 06/24/22 Principal diagnosis: SOB Hospital Course: 76-year-old with history of hypertension presenting with shortness of breath at rest, lightheadedness, palpitations. He was recently diagnosed with COVID-19 couple of weeks ago. On initial presentation, he was tachycardic, in A. fib with RVR. Lab work showed mildly elevated troponin, proBNP, d-dimer, mild hypercalcemia. CTA showed no PE, cardiomegaly with pleural effusions and mild infiltrate and atelectasis at lung bases suggesting CHF. Patient currently being treated with IV Lasix as well as rate control agents for A. fib with RVR, and anticoagulated with heparin drip. Echo shows LVEF 20-25%. Subjective: Patient seen and examined at bedside. No acute events overnight. He claims that shortness of breath has slightly improved. Denies any chest pain, palpitations, lightheadedness, nausea, vomiting, abdominal pain, diarrhea, constipation, or urinary complaints. Pertinent positives and negatives as discussed above, a complete review of systems was performed and all other systems are negative. Vitals Signs Reviewed. General: nontoxic, no distress, appears at stated age, morbidly obese Derm: warm, dry Head: atraumatic, normocephalic, symmetric Eyes: EOMI, no lid lag, anicteric sclera Mouth: no lip lesion, mucus membranes moist Cardiovascular: S1S2 irregular, no murmur Lungs: CTA bilateral, no rhonchi, no rales , no accessory muscle use, on 2 L Abdominal: soft, nontender to palpation, no guarding, no appreciable organomegaly Ext: no gross muscle atrophy, no edema, no contractures Neuro: CN II-XI grossly intact, no focal neuro deficits Psych: Alert, oriented, appropriate affect Assessment and Plan: New onset atrial fibrillation with RVR CHF exacerbation, systolic Elevated troponin Elevated d-dimer, CTA negative for PE -On heparin drip -Metoprolol -Telemetry -IV Lasix, I's and O's, daily weights -Cardiology consult -Echo - LVEF 20-25% -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 Started amiodarone per cardiology recommendations. May need outpatient ablation. Chronic conditions Chronic pain Hypertension -Medications reviewed DVT ppx: Heparin drip Code status: Full code Anticipated discharge place: Home Anticipated discharge time: 1-2 days Objective - Vital Signs Vital signs: Vital Signs Temp 98.0 F 06/24/22 04:00 Pulse 71 06/24/22 12:00 Resp 16 06/24/22 12:00 BP 100/74 06/24/22 12:00 Pulse Ox 94 L 06/24/22 12:00 FiO2 21 06/22/22 20:36 Intake & Output 06/23/22 06/24/22 06/24/22 18:59 06:59 18:59 Intake Total 663.217 240 Output Total 1550 1200 Balance -886.783 -1200 240 Weight 135.8 kg 135.2 kg Intake: Intake, IV Titration 187.217 Amount Heparin Sod,Pork in 0.45% 187.217 NaCl 25,000 unit In 0.45 % NaCl 1 250ml.bag @ 7. 112 UNITS/KG/HR 10 mls/hr IV .Q24H [facility] Rx#: [id number] Oral 476 240 Output: Urine 1550 1200 Other: Voiding Method Toilet Toilet Toilet Urinal Urinal Urinal # Voids 1 - Labs CBC & Chem 7: 06/22/22 02:07 06/23/22 09:19 Labs: Microbiology - Last 24 Hours (Table) 06/21/22 17:58 Blood Culture - Preliminary Blood No Growth after 48 hours 06/21/22 17:58 Blood Culture - Preliminary Blood No Growth after 48 hours
[2022-06-24 13:39] LABS: Basophils % (A) 0 %; Eosinophils # (A) 0.1 k/uL (0-0.7); Eosinophils % (A) 1 %; HCT 46.6 % (39.0-53.0); HGB 15.7 gm/dL (13.0-17.5); Lymphocytes # (A) 0.6 k/uL (1.0-4.8); Lymphocytes % (A) 9 %; MCH 34.2 pg (25.0-35.0); MCHC 33.7 g/dL (31.0-37.0); MCV 101.5 fL (80.0-100.0); Macrocytosis Slight; Mean Platelet Volume 8.8; Monocytes # (A) 0.3 k/uL (0-1.0); Monocytes % (A) 5 %; Neutrophils % (A) 83 %; Platelet Count 160 k/uL (150-450); RBC 4.59 m/uL (4.30-5.90); WBC 7.2 k/uL (3.8-10.6)
[2022-06-24 14:04] LABS: INR 1.2 (<1.2); Partial Thromboplastin Time 24.1 sec (22.0-30.0); Prothrombin Time 12.1 sec (9.0-12.0)
--- NOTE | 2022-06-24 14:52 | P.PN ---
Subjective Progress Note Date: 06/24/22 HISTORY OF PRESENTING ILLNESS Patient is pleasant 76-year-old male with history of obesity, new-onset atrial fibrillation, recent COVID-19 infection 3 weeks ago who presents secondary to increasing shortness breath as well as lower extremity edema and loss of taste over last 2 weeks. He states he did see his PCP who thought some of this may be related to the [facility]. He denies any prior history of lower extremity edema. He admits to shortness breath as well as some orthopnea. Denies any chest pain however has been having some pressure/tightness. No history of tobacco, alcohol, no family history of CAD. No prior history of atrial fibrillation and no history of stroke. White blood cell count 8.7, hemoglobin 17.3, d-dimer 4.4, creatinine 0.9, troponin 0.043, proBNP 2600, Chest CTA showed no PE with cardiomegaly and pleural effusions consistent with congestive heart failure. EKG showing atrial fibrillation, right bundle branch block with nonspecific minimal ST depressions 06/23 The patient is resting in the bed, he denies any chest pain or shortness of breath no palpitations. Is currently on O2 at 3 L nasal cannula does not have home O2. He remains on heparin drip which will be transitioned to NOAC. site monitor A. fib at rate of 100-110. He is currently on Toprol-XL 25 mg daily, blood pressure 123/80. BUN 35 creatinine 0.96. Patient is currently on Lasix IV 40 mg every 12 hours with good urine output and weight loss documented. He continues to have lower extremity. Echocardiogram to be obtained today. 06/24 echocardiogram reveals EF of 20-25%. We do not have a previous echocardiogram for comparison. He is currently on Toprol XL 25 mg, amiodarone 200 mg twice daily and eliquis. We will plan to hold eliquis this evening and start heparin drip in anticipation of cardiac catheterization either tomorrow or with Dr. Null. 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 PHYSICAL EXAMINATION Vital signs reviewed. CONSTITUTIONAL: No apparent distress. HEENT: Head is normocephalic. Pupils are equal, round. Sclerae anicteric. Mucous membranes of the mouth are moist. No JVD. No carotid bruit. CHEST EXAMINATION: Lungs are clear to auscultation. No chest wall tenderness is noted on palpation or with deep breathing. HEART EXAMINATION: Irregular rate and rhythm. S1, S2 heard. No murmurs, gallops or rub. ABDOMEN: Soft, nontender. Positive bowel sounds. EXTREMITIES: 2+ peripheral pulses, 2+ lower extremity edema and no calf tenderness. NEUROLOGIC EXAMINATION: Patient is awake, alert and oriented x3. ASSESSMENT 1. Acute on chronic heart failure unknown systolic versus diastolic 2. Atrial fibrillation with RVR. 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 Recent COVID-19 infection 3 weeks ago 4. Hypertension 5. Atypical chest pressure 6. Minimal troponin elevations likely related to heart failure 7. New onset of cardiomyopathy, ischemic versus nonischemic PLAN Continue patient on IV Lasix 40 mg every 12 hours, monitor I&O, daily weights, electrolytes and renal function Patient will be scheduled for cardiac catheterization either Thursday or with Dr. Null. Eliquis will be placed on hold Continue patient on Toprol-XL 25 mg daily, transition eliquis 2 heparin drip. Nurse practitioner note has been reviewed, I agree with documented findings and plan of care. Patient was seen and examined. Objective - Vital Signs Vital signs: Vital Signs Temp 98.0 F 06/24/22 04:00 Pulse 59 L 06/24/22 08:00 Resp 16 06/24/22 08:00 BP 133/75 06/24/22 08:00 Pulse Ox 95 06/24/22 08:00 FiO2 21 06/22/22 20:36 Intake & Output 06/23/22 06/24/22 06/24/22 18:59 06:59 18:59 Intake Total 663.217 Output Total 1550 1200 Balance -886.783 -1200 Weight 135.8 kg 135.2 kg Intake: Intake, IV Titration 187.217 Amount Heparin Sod,Pork in 0.45% 187.217 NaCl 25,000 unit In 0.45 % NaCl 1 250ml.bag @ 7. 112 UNITS/KG/HR 10 mls/hr IV .Q24H [facility] Rx#: [id number] Oral 476 Output: Urine 1550 1200 Other: Voiding Method Toilet Toilet Toilet Urinal Urinal Urinal # Voids 1 - Labs CBC & Chem 7: 06/24/22 13:21 06/23/22 09:19 Labs: Microbiology - Last 24 Hours (Table) 06/21/22 17:58 Blood Culture - Preliminary Blood No Growth after 48 hours 06/21/22 17:58 Blood Culture - Preliminary Blood No Growth after 48 hours
[2022-06-24] MEDS: HEPARIN SOD,PORK IN 0.45% NACL 25,000 UNIT in 0.45% NACL 1 250ML.BAG IV SCH (17:15)
[2022-06-25] MEDS: METOPROLOL SUCCINATE (ER) 25 MG TAB.ER.24H PO SCH (05:53)
[2022-06-25] MEDS: amLODIPine 10 MG TAB PO SCH (05:54)
[2022-06-25] MEDS: ASPIRIN 81 MG PO SCH (05:54)
[2022-06-25] MEDS: LOSARTAN 50 MG TAB PO SCH (05:54)
[2022-06-25] MEDS: AMIODARONE 200 MG TAB PO SCH ×2 (05:54→20:44)
[2022-06-25] MEDS: FUROSEMIDE 10 MG/ML 4 ML VIAL IV SCH ×2 (08:38→20:44)
[2022-06-25] MEDS: NITROGLYCERIN OINT 1 INCH/GM PACKET TOPICAL SCH ×4 (08:39→22:57)
[2022-06-25 10:14] LABS: Basophils % (A) 0 %; Eosinophils # (A) 0.1 k/uL (0-0.7); Eosinophils % (A) 1 %; HCT 48.9 % (39.0-53.0); HGB 16.1 gm/dL (13.0-17.5); Lymphocytes # (A) 0.7 k/uL (1.0-4.8); Lymphocytes % (A) 9 %; MCH 33.3 pg (25.0-35.0); MCHC 32.9 g/dL (31.0-37.0); MCV 101.3 fL (80.0-100.0); Macrocytosis Slight; Mean Platelet Volume 9.6; Monocytes # (A) 0.4 k/uL (0-1.0); Monocytes % (A) 5 %; Neutrophils % (A) 82 %; Platelet Count 176 k/uL (150-450); RBC 4.82 m/uL (4.30-5.90); RDW 14.2 % (11.5-15.5); WBC 7.3 k/uL (3.8-10.6)
[2022-06-25 10:22] LABS: INR 1.1 (<1.2); Partial Thromboplastin Time 34.5 sec (22.0-30.0); Prothrombin Time 11.6 sec (9.0-12.0)
--- NOTE | 2022-06-25 11:39 | P.PN ---
Subjective Progress Note Date: 06/25/22 Principal diagnosis: Shortness of breath Patient states that he is feeling better, still has significant swelling in both his legs. No nausea or vomiting. No fevers or chills. Objective - Vital Signs Vital signs: Vital Signs Temp 97.7 F 06/25/22 04:00 Pulse 94 06/25/22 08:00 Resp 16 06/25/22 08:00 BP 127/94 06/25/22 08:00 Pulse Ox 91 L 06/25/22 08:00 FiO2 21 06/22/22 20:36 Intake & Output 06/24/22 06/25/22 06/25/22 18:59 06:59 18:59 Intake Total 802 Output Total 950 400 Balance -148 -400 Weight 134.7 kg Intake: Oral 802 Output: Urine 950 400 Other: Voiding Method Toilet Toilet Toilet Urinal Urinal Urinal # Voids 4 - Exam General: nontoxic, no distress, appears at stated age, morbidly obese Derm: warm, dry Head: atraumatic, normocephalic, symmetric Eyes: EOMI, no lid lag, anicteric sclera Mouth: no lip lesion, mucus membranes moist Cardiovascular: S1S2 irregular, no murmur, 2+ pedal edema Lungs: CTA bilateral, no rhonchi, no rales , no accessory muscle use, on 2 L Abdominal: soft, nontender to palpation, no guarding, no appreciable organomegaly Ext: no gross muscle atrophy, no edema, no contractures Neuro: CN II-XI grossly intact, no focal neuro deficits Psych: Alert, oriented, appropriate affect - Labs CBC & Chem 7: 06/25/22 09:21 06/23/22 09:19 Labs: Abnormal Lab Results - Last 24 Hours (Table) 06/24/22 06/24/22 06/24/22 Range/Units 13:21 13:21 18:35 MCV 101.5 H (80.0-100.0) fL Lymphocytes # 0.6 L (1.0-4.8) k/uL PT 12.1 H (9.0-12.0) sec INR 1.2 H (<1.2) APTT 58.6 H (22.0-30.0) sec 06/25/22 06/25/22 Range/Units 09:21 09:21 MCV 101.3 H (80.0-100.0) fL Lymphocytes # 0.7 L (1.0-4.8) k/uL PT (9.0-12.0) sec INR (<1.2) APTT 34.5 H (22.0-30.0) sec Microbiology - Last 24 Hours (Table) 06/21/22 17:58 Blood Culture - Preliminary Blood No Growth after 72 hours 06/21/22 17:58 Blood Culture - Preliminary Blood No Growth after 72 hours Assessment and Plan Plan: New onset atrial fibrillation with RVR CHF exacerbation, systolic Elevated troponin Elevated d-dimer, CTA negative for PE -On heparin drip -Metoprolol -Telemetry -IV Lasix, I's and O's, daily weights -Cardiology consulted, going for heart catheterization per cardio. -Echo - LVEF 20-25% -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 Started amiodarone per cardiology recommendations. May need outpatient ablation. Chronic conditions Chronic pain Hypertension -Medications continued DVT ppx: Heparin drip Code status: Full code Anticipated discharge place: Home Anticipated discharge time: 1-2 days
[2022-06-25 12:08] VITALS: BMI 40.2
--- NOTE | 2022-06-25 14:12 | P.PN ---
Subjective Progress Note Date: 06/25/22 HISTORY OF PRESENTING ILLNESS Patient is pleasant 76-year-old male with history of obesity, new-onset atrial fibrillation, recent COVID-19 infection 3 weeks ago who presents secondary to increasing shortness breath as well as lower extremity edema and loss of taste over last 2 weeks. He states he did see his PCP who thought some of this may be related to the [facility]. He denies any prior history of lower extremity edema. He admits to shortness breath as well as some orthopnea. Denies any chest pain however has been having some pressure/tightness. No history of tobacco, alcohol, no family history of CAD. No prior history of atrial fibrillation and no history of stroke. White blood cell count 8.7, hemoglobin 17.3, d-dimer 4.4, creatinine 0.9, troponin 0.043, proBNP 2600, Chest CTA showed no PE with cardiomegaly and pleural effusions consistent with congestive heart failure. EKG showing atrial fibrillation, right bundle branch block with nonspecific minimal ST depressions 06/23 The patient is resting in the bed, he denies any chest pain or shortness of breath no palpitations. Is currently on O2 at 3 L nasal cannula does not have home O2. He remains on heparin drip which will be transitioned to NOAC. residential monitor A. fib at rate of 100-110. He is currently on Toprol-XL 25 mg daily, blood pressure 123/80. BUN 35 creatinine 0.96. Patient is currently on Lasix IV 40 mg every 12 hours with good urine output and weight loss documented. He continues to have lower extremity. Echocardiogram to be obtained today. 06/24 echocardiogram reveals EF of 20-25%. We do not have a previous echocardiogram for comparison. He is currently on Toprol XL 25 mg, amiodarone 200 mg twice daily and eliquis. We will plan to hold eliquis this evening and start heparin drip in anticipation of cardiac catheterization either tomorrow or with Dr. Null. Heart rate is been running in the 50s to 70s, residential monitor atrial fibrillation with controlled rate, blood pressure 133/75. 06/25 Patient denies having any chest pain or shortness of breath today. He is continued on IV Lasix 40 mg every 12 hours. He is scheduled for cardiac catheterization which will be postponed until due to scheduling issues. residential monitor is atrial fibrillation. Heart rate has been in the 50s to 90s, blood pressure 116/64. Repeat CBC reveals WBC 7.3 and hemoglobin 16.1. PHYSICAL EXAMINATION Vital signs reviewed. CONSTITUTIONAL: No apparent distress. HEENT: Head is normocephalic. Pupils are equal, round. Sclerae anicteric. Mucous membranes of the mouth are moist. No JVD. No carotid bruit. CHEST EXAMINATION: Lungs are clear to auscultation. No chest wall tenderness is noted on palpation or with deep breathing. HEART EXAMINATION: Irregular rate and rhythm. S1, S2 heard. No murmurs, gallops or rub. ABDOMEN: Soft, nontender. Positive bowel sounds. EXTREMITIES: 2+ peripheral pulses, 2+ lower extremity edema and no calf tenderness. NEUROLOGIC EXAMINATION: Patient is awake, alert and oriented x3. ASSESSMENT 1. Acute on chronic heart failure unknown systolic versus diastolic 2. Atrial fibrillation with RVR, paroxysmal atrial fibrillation. 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 Recent COVID-19 infection 3 weeks ago 4. Hypertension 5. Atypical chest pressure 6. Minimal troponin elevations likely related to heart failure 7. New onset of cardiomyopathy, ischemic versus nonischemic PLAN Continue patient on IV Lasix 40 mg every 12 hours, monitor I&O, daily weights, electrolytes and renal function Patient will be scheduled for cardiac catheterization on with Dr. Null. Eliquis will be placed on hold and patient maintained on heparin drip Continue patient on Toprol-XL 25 mg daily, transition eliquis 2 heparin drip. Further recommendations depending on patient's progress. Nurse practitioner note has been reviewed, I agree with documented findings and plan of care. Patient was seen and examined. Objective - Vital Signs Vital signs: Vital Signs Temp 97.7 F 06/25/22 04:00 Pulse 94 06/25/22 08:00 Resp 16 06/25/22 08:00 BP 127/94 06/25/22 08:00 Pulse Ox 91 L 06/25/22 08:00 FiO2 21 06/22/22 20:36 Intake & Output 06/24/22 06/25/22 06/25/22 18:59 06:59 18:59 Intake Total 802 Output Total 950 400 Balance -148 -400 Weight 134.7 kg Intake: Oral 802 Output: Urine 950 400 Other: Voiding Method Toilet Toilet Urinal Urinal # Voids 4 - Labs CBC & Chem 7: 06/25/22 09:21 06/23/22 09:19 Labs: Abnormal Lab Results - Last 24 Hours (Table) 06/24/22 06/24/22 06/24/22 Range/Units 13:21 13:21 18:35 MCV 101.5 H (80.0-100.0) fL Lymphocytes # 0.6 L (1.0-4.8) k/uL PT 12.1 H (9.0-12.0) sec INR 1.2 H (<1.2) APTT 58.6 H (22.0-30.0) sec 06/25/22 Range/Units 09:21 MCV 101.3 H (80.0-100.0) fL Lymphocytes # 0.7 L (1.0-4.8) k/uL PT (9.0-12.0) sec INR (<1.2) APTT (22.0-30.0) sec Microbiology - Last 24 Hours (Table) 06/21/22 17:58 Blood Culture - Preliminary Blood No Growth after 72 hours 06/21/22 17:58 Blood Culture - Preliminary Blood No Growth after 72 hours
[2022-06-25] MEDS: HEPARIN SOD,PORK IN 0.45% NACL 25,000 UNIT in 0.45% NACL 1 250ML.BAG IV SCH (16:59)
[2022-06-26] MEDS: LOSARTAN 50 MG TAB PO SCH (06:39)
[2022-06-26] MEDS: AMIODARONE 200 MG TAB PO SCH ×2 (06:40→20:52)
[2022-06-26] MEDS: METOPROLOL SUCCINATE (ER) 25 MG TAB.ER.24H PO SCH (06:40)
[2022-06-26] MEDS: amLODIPine 10 MG TAB PO SCH (06:40)
[2022-06-26] MEDS: ASPIRIN 81 MG PO SCH (06:40)
[2022-06-26] MEDS ORDERED: ALPRAZolam 0.25 MG TAB PO PRN (07:53)
[2022-06-26] MEDS ORDERED: ASPIRIN 325 MG TAB PO STA (07:53)
[2022-06-26] MEDS ORDERED: ALPRAZolam 0.5 MG TAB PO PRN (07:53)
[2022-06-26] MEDS ORDERED: ATORVASTATIN 80 MG TAB PO STA (07:53)
[2022-06-26] MEDS ORDERED: NITROGLYCERIN SL TABS 0.4 MG TAB SUBLINGUAL PRN (07:53)
[2022-06-26] MEDS ORDERED: SODIUM CHLORIDE 0.9% 1,000 ML in EMPTY BAG 1 BAG IV SCH (08:00)
[2022-06-26] MEDS ORDERED: fentaNYL (PF) 50 MCG/ML 2 ML AMP ONE (08:10)
[2022-06-26] MEDS ORDERED: HEPARIN SODIUM 1,000 UN/ML (10ML VL) ONE (08:10)
[2022-06-26] MEDS ORDERED: VERAPAMIL 2.5 MG/ML 2 ML AMP ONE (08:11)
[2022-06-26] MEDS ORDERED: IV FLUID CONTINUATION 1,000 ML IV ONE (08:25)
[2022-06-26] MEDS ORDERED: fentaNYL (PF) 50 MCG/ML 2 ML AMP IV ONE (08:29)
[2022-06-26] MEDS ORDERED: MIDAZOLAM 2 MG/2 ML VIAL IV ONE (08:29)
[2022-06-26] MEDS ORDERED: LIDOCAINE 1% INJ 10MG/ML (5 ML VIAL-PF) SQ ONE (08:31)
[2022-06-26] MEDS ORDERED: NALOXONE 0.4 MG/ML 1 ML VIAL ONE (08:33)
[2022-06-26] MEDS ORDERED: NALOXONE 0.4 MG/ML 1 ML VIAL IV ONE (08:33)
[2022-06-26] MEDS ORDERED: HEPARIN SODIUM 1,000 UN/ML (10ML VL) IV ONE (08:41)
[2022-06-26] MEDS ORDERED: IOPAMIDOL-370 100ML BTL INJ ONE (09:03)
[2022-06-26] MEDS: FUROSEMIDE 10 MG/ML 4 ML VIAL IV SCH ×2 (09:21→20:52)
[2022-06-26] MEDS: NITROGLYCERIN OINT 1 INCH/GM PACKET TOPICAL SCH ×4 (09:21→20:52)
--- NOTE | 2022-06-26 09:39 | P.CARDCATH ---
Description of Procedure: PROCEDURES PERFORMED: Left heart catheterization, bilateral coronary angiography INDICATION: Cardiomyopathy CONSENT:I have discussed the risks, benefits and alternative therapies for the above-mentioned procedure and for both sedation/analgesia as well as necessary blood product administration, if indicated, as they pertain to this patient. The patient has indicated understanding and acceptance of the risks and procedures discussed. PROCEDURE: After the risks, benefits and alternatives of the above mentioned procedure explained in detail with the patient, informed consent was obtained. Patient was taken to the catheterization lab and prepped and draped in usual fashion. 1% lidocaine was used to anesthetize the right radial artery. Patient did have some hypoxia and therefore was given Narcan with improvement. A 6- Palauan sheath was placed in the right radial artery using modified Seldinger technique. There was significant tortoisty of the innominate artery requiring an Amplatz wire to help allow for torquing of the catheter. Left coronary angiography was performed with a 5-Palauan JL 3.5 catheter and right coronary angiography was performed with a 6-Palauan AR2 catheter in various views. The 6- Palauan AR2 catheter was inserted into the left ventricle and pressure measurements were obtained. The right radial sheath was removed and a TR band was placed with hemostasis achieved. The patient tolerated the procedure well. Patient was transported back to the post catheterization holding area in stable condition. Conscious Sedation: Patient was monitored under the direct supervision of vision of myself for conscious sedation using Versed and fentanyl for a total duration of 14 minutes HEMODYNAMICS: Ao: 132/74 LV: 131/5, LVEPD 17mmHg SELECTIVE CORONARY ARTERIOGRAPHY: LEFT MAIN: The left main is a large caliber vessel which bifurcates into the LAD and circumflex. There is no significant stenosis. LEFT ANTERIOR DESCENDING CORONARY ARTERY: LAD is a large caliber vessel which wraps around to the apex. There is no significant stenosis. LEFT CIRCUMFLEX CORONARY ARTERY: Left circumflex is a moderate caliber vessel without significant stenosis. RIGHT CORONARY ARTERY: The right coronary artery is a large caliber vessel which gives off a PDA and PLV branch and is the dominant vessel. There is no significant stenosis. FINAL IMPRESSION: 1. Normal coronary arteries as described above. 2. Mildly elevated left sided filling pressures PLAN: 1. Aggressive risk factor modification per most recent ACC/AHA guidelines. 2. Follow-up in the office in 1-2 weeks.
[2022-06-26 11:10] LABS: African American GFR (CKD) >90 (>60 ml/min/1.73 sqM); Anion Gap 6 mmol/L; Blood Urea Nitrogen 35 mg/dL (9-20); Calcium 10.3 mg/dL (8.4-10.2); Carbon Dioxide 31 mmol/L (22-30); Chloride 101 mmol/L (98-107); Glucose 120 mg/dL (74-99); Non-African American GFR(CKD) 82 (>60 ml/min/1.73 sqM); Potassium 4.3 mmol/L (3.5-5.1); Sodium 138 mmol/L (137-145)
--- NOTE | 2022-06-26 12:27 | P.PN ---
Subjective Progress Note Date: 06/26/22 Principal diagnosis: Shortness of breath Patient is currently feeling better, but quiet back to his baseline breathing. He just came back from heart catheterization. No chest pain or fevers. Objective - Vital Signs Vital signs: Vital Signs Temp 98 F 06/26/22 04:00 Pulse 52 L 06/26/22 11:43 Resp 18 06/26/22 11:43 BP 120/67 06/26/22 11:43 Pulse Ox 95 06/26/22 11:43 FiO2 21 06/22/22 20:36 Intake & Output 06/25/22 06/26/22 06/26/22 18:59 06:59 18:59 Intake Total 487.739 161.799 296.697 Output Total 1550 Balance 487.739 -1388.201 296.697 Weight 134.7 kg 132.1 kg Intake: IV 150 Intake, IV Titration 247.739 43.799 146.697 Amount Heparin Sod,Pork in 0.45% 247.739 43.799 146.697 NaCl 25,000 unit In 0.45 % NaCl 1 250ml.bag @ 7. 396 UNITS/KG/HR 9.999 mls /hr IV .Q24H [facility] Rx#: [id number] Oral 240 118 Output: Urine 1550 Other: Voiding Method Toilet Toilet Urinal Urinal # Voids 2 - Exam General: nontoxic, no distress, appears at stated age, morbidly obese Derm: warm, dry Head: atraumatic, normocephalic, symmetric Eyes: EOMI, no lid lag, anicteric sclera Mouth: no lip lesion, mucus membranes moist Cardiovascular: S1S2 irregular, no murmur, 2+ pedal edema Lungs: CTA bilateral, no rhonchi, no rales , no accessory muscle use, on 2 L Abdominal: soft, nontender to palpation, no guarding, no appreciable organomegaly Ext: no gross muscle atrophy, no edema, no contractures Neuro: CN II-XI grossly intact, no focal neuro deficits Psych: Alert, oriented, appropriate affect - Labs CBC & Chem 7: 06/25/22 09:21 06/26/22 10:08 Labs: Abnormal Lab Results - Last 24 Hours (Table) 06/25/22 06/26/22 Range/Units 19:45 10:08 APTT 48.6 H (22.0-30.0) sec Carbon Dioxide 31 H (22-30) mmol/L BUN 35 H (9-20) mg/dL Glucose 120 H (74-99) mg/dL Calcium 10.3 H (8.4-10.2) mg/dL Microbiology - Last 24 Hours (Table) 06/21/22 17:58 Blood Culture - Preliminary Blood No Growth after 96 hours 06/21/22 17:58 Blood Culture - Preliminary Blood No Growth after 96 hours Assessment and Plan Plan: New onset atrial fibrillation with RVR Acute hypoxic respiratory failure. CHF exacerbation, systolic Elevated troponin Elevated d-dimer, CTA negative for PE -Switch heparin drip to eliquis -Metoprolol -Telemetry -IV Lasix, I's and O's, daily weights. -Echo - LVEF 20-25% -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 Clean coronaries per heart cath. -Started amiodarone per cardiology recommendations. May need outpatient ablation. Chronic conditions Chronic pain Hypertension -Medications continued DVT ppx: eliquis Code status: Full code Anticipated discharge place: Home Anticipated discharge time: in am
[2022-06-26] MEDS: APIXABAN 5 MG TAB PO SCH ×2 (13:07→20:52)
[2022-06-26 20:50] VITALS: TEMP 98
[2022-06-27] MEDS ORDERED: HEPARIN SODIUM,PORCINE 2,500 UNIT in SODIUM CHLORIDE 0.9% 250 ML IRRIGATION PRN (07:00)
[2022-06-27] MEDS ORDERED: HEPARIN SODIUM,PORCINE 10,000 UNIT in SODIUM CHLORIDE 0.9% 1,000 ML IRRIGATION PRN (07:00)
[2022-06-27 08:56] LABS: Basophils % (A) 0 %; Eosinophils # (A) 0.1 k/uL (0-0.7); Eosinophils % (A) 1 %; HCT 48.5 % (39.0-53.0); HGB 16.2 gm/dL (13.0-17.5); Lymphocytes # (A) 0.6 k/uL (1.0-4.8); Lymphocytes % (A) 8 %; MCH 33.9 pg (25.0-35.0); MCHC 33.3 g/dL (31.0-37.0); MCV 101.8 fL (80.0-100.0); Macrocytosis Slight; Mean Platelet Volume 8.9; Monocytes # (A) 0.3 k/uL (0-1.0); Monocytes % (A) 5 %; Neutrophils # (A) 5.8 k/uL (1.3-7.7); Neutrophils % (A) 82 %; Platelet Count 143 k/uL (150-450); RBC 4.76 m/uL (4.30-5.90); RDW 14.6 % (11.5-15.5); WBC 7.1 k/uL (3.8-10.6)
[2022-06-27] MEDS ORDERED: ASPIRIN 81 MG PO SCH (09:00)
[2022-06-27 09:05] LABS: Calcium 10.1 mg/dL (8.4-10.2); Potassium 4.1 mmol/L (3.5-5.1)
[2022-06-27 09:56] VITALS: BP 116/56; PULSE 61; RESP 16
[2022-06-27] MEDS: LOSARTAN 50 MG TAB PO SCH (09:56)
[2022-06-27] MEDS: AMIODARONE 200 MG TAB PO SCH (09:56)
[2022-06-27] MEDS: APIXABAN 5 MG TAB PO SCH (09:57)
[2022-06-27] MEDS: METOPROLOL SUCCINATE (ER) 25 MG TAB.ER.24H PO SCH (09:57)
[2022-06-27] MEDS: NITROGLYCERIN OINT 1 INCH/GM PACKET TOPICAL SCH (09:57)
[2022-06-27] MEDS: amLODIPine 10 MG TAB PO SCH (09:57)
[2022-06-27] MEDS: FUROSEMIDE 10 MG/ML 4 ML VIAL IV SCH (09:57)
--- NOTE | 2022-06-27 12:14 | P.DS ---
Providers Date of admission: 06/21/22 20:13 Expected date of discharge: 06/27/22 Attending physician: Dulce Niño MD Consults: 06/21/22 20:34 Consult Physician Routine Consulting Provider: Luis Morales Consult Reason/Comments: Atrial fibrillation, CHF, elevated troponin Do you want consulting provider notified?: Yes Primary care physician: David Moe MD Hospital Course: 76-year-old male with history of obesity, recent COVID-19 infection 3 weeks ago who presents secondary to increasing shortness breath as well as lower extremity edema and loss of taste over last 2 weeks. He states he did see his PCP who thought some of this may be related to the [facility]. Both of his legs are swollen but he is not sure for how long they have been like that. Sob associated with orthopnea, palpitations and dizziness. No chest pain however has been having some pressure/tightness. No fever, chills, URI symptoms. He was diagnosed with COVID couple weeks ago, but claims his symptoms has since resolved. No history of tobacco, alcohol, no family history of CAD. No prior history of atrial fibrillation and no history of stroke. Labs in the ER showed white blood cell count 8.7, hemoglobin 17.3, d-dimer 4.4, creatinine 0.9, troponin 0.043, proBNP 2600, Chest CTA showed no PE with cardiomegaly and pleural effusions consistent with congestive heart failure. EKG showing atrial fibrillation, right bundle branch block with nonspecific minimal ST depressions. He was found to have new onset atrial fibrillation with RVR, acute hypoxic respiratory failure due to that as well as CHF exacerbation, systolic. Echo showed LVEF 20-25%. His trops were cycled and remained mildly elevated at 0.04 but were flat. He was started on heparin gtt. Cardiology was involved. Had a he art cath that showed no CAD. He was diuresed with IV lasix, which helped his breathing but continues to require oxygen even on the day of discharge. He was requiring 2-3 L. Cardiomyopathy most likely tachycardia induced. He was started on amiodarone per cardiology recommendations. May need outpatient ablation. On the day of discharge his was discussed with ,. Patient will be discharged home in stable condition. Patient was seen and examined on the day of discharge 06/27 Time for discharge 35 minutes. Patient Condition at Discharge: Fair Plan - Discharge Summary Discharge Rx Participant: No New Discharge Prescriptions: No Action Aspirin [Adult Low Dose Aspirin EC] 81 mg PO DAILY amLODIPine BESYLATE [Norvasc] 10 mg PO DAILY Dorzolamide HCl/Pf [Dorzolamide 2% Eye Drop] 1 drop BOTH EYES BID Latanoprost [Latanoprost 0.005%] 1 drop BOTH EYES HS Losartan Potassium 100 mg PO DAILY Discharge Medication List Aspirin [Adult Low Dose Aspirin EC] 81 mg PO DAILY 07/16/15 [History] amLODIPine BESYLATE [Norvasc] 10 mg PO DAILY 07/16/15 [History] Dorzolamide HCl/Pf [Dorzolamide 2% Eye Drop] 1 drop BOTH EYES BID 06/21/22 [History] Latanoprost [Latanoprost 0.005%] 1 drop BOTH EYES HS 06/21/22 [History] Losartan Potassium 100 mg PO DAILY 06/21/22 [History] Follow up Appointment(s)/Referral(s): David Moe MD [Primary Care Provider] - 1-2 days
--- NOTE | 2022-06-28 00:57 | PN ---
PROGRESS NOTE SUBJECTIVE: Praneeth is a 76-year-old gentleman, who is admitted to hospital with congestive heart failure exacerbation. An echocardiogram revealed cardiomyopathy with severe LV dysfunction; on a cardiac catheterization that he had, he did not have, he had normal coronary arteries. MEDICATIONS: The patient is on: 1. Amiodarone 200 b.i.d. 2. Eliquis 10 mg b.i.d. 3. Norvasc. 4. Aspirin. 5. Lasix. 6. Toprol. 7. Cozaar. OBJECTIVE: GENERAL: He is comfortable at rest. VITAL SIGNS: Stable. CHEST: Reveals diminished air entry at the bases. HEART: Reveals first and second heart sounds, irregular rhythm. EXTREMITIES: There is bilateral leg edema. ASSESSMENT: 1. Acute on chronic systolic heart failure. 2. Persistent atrial fibrillation. 3. Cardiomyopathy. PLAN: The patient can be switched to Eliquis 5 mg b.i.d. and discharge him home today. Continue the Lasix, but can be given orally along with losartan and metoprolol. Followup with Dr. uNll in the outpatient setup. MMODL / IJN: [id number] /
== END 2022-06-27 15:13 | disposition home or self-care (01) | DRG 286 ==
LOC: EC 14:44 → 3SCARD 20:13
PROVIDERS: ADMIT Internal Medicine; ATTEND Internal Medicine
PROC: B2111ZZ Fluoroscopy of Multiple Coronary Arteries using Low Osmolar Contrast (ICD-10-PCS; 2022-06-26)
PROC: B2141ZZ Fluoroscopy of Right Heart using Low Osmolar Contrast (ICD-10-PCS; 2022-06-26)
PROC: 4A023N7 Measurement of Cardiac Sampling and Pressure, Left Heart, Percutaneous Approach (ICD-10-PCS; principal; 2022-06-26 10:30)
DX: I11.0 Hypertensive heart disease with heart failure (principal); I50.23 Acute on chronic systolic (congestive) heart failure; J96.01 Acute respiratory failure with hypoxia; I48.19 Other persistent atrial fibrillation; I31.39 Other pericardial effusion (noninflammatory); Z68.41 Body mass index [BMI] 40.0-44.9, adult; E66.9 Obesity, unspecified; I08.1 Rheumatic disorders of both mitral and tricuspid valves; R43.9 Unspecified disturbances of smell and taste; M79.89 Other specified soft tissue disorders; I45.10 Unspecified right bundle-branch block; R79.89 Other specified abnormal findings of blood chemistry; E83.52 Hypercalcemia; I25.5 Ischemic cardiomyopathy; G89.29 Other chronic pain; Z86.16 Personal history of COVID-19; Z79.82 Long term (current) use of aspirin; Z79.899 Other long term (current) drug therapy; Z85.828 Personal history of other malignant neoplasm of skin; Z91.81 History of falling; Z87.891 Personal history of nicotine dependence
CPT/HCPCS: 36415; 71046; 71275; 80048; 80053; 83605; 83735; 83880; 84484; 85025; 85379; 85610; 85730; 87040; 93005; 93306; 93458; 93970; 94760; 96374; 96375; 99291

== ENCOUNTER 2022-07-29 07:40 | Day surgery (SDC) | payer MEDICARE, OTHER ==
[~2022-07-29 07:40] MED LIST: LACTATED RINGERS 1,000 ML IV SCH; SODIUM CHLORIDE 0.9% 1,000 ML IV SCH
[2022-07-29] MEDS ORDERED: SODIUM CHLORIDE 0.9% 500 ML 500 ML IV ONE (08:12)
[2022-07-29] MEDS ORDERED: METOPROLOL SUCCINATE (ER) 25 MG TAB.ER.24H PO STA (08:23)
[2022-07-29] MEDS ORDERED: AMIODARONE 200 MG TAB PO STA (08:23)
[2022-07-29 08:33] LABS: Glucose,Whole Blood 119 mg/dL (70-110)
[2022-07-29] MEDS ORDERED: POTASSIUM CHLORIDE ER 20 MEQ TAB.ER PO SCH (09:00)
[2022-07-29] MEDS ORDERED: PROPOFOL 10 MG/ML 20 ML VIAL IV ONE (09:02)
[2022-07-29] MEDS ORDERED: LIDOCAINE 2% INJ 20 MG/ML (2 ML VIAL) ONE (09:02)
[2022-07-29] MEDS: BENZOCAINE SPRAY 1 CAN TOPICAL ONE ×2 (09:12→09:17)
--- NOTE | 2022-07-29 09:35 | P.TEE ---
Description of Procedure(s): Procedure performed: Transesophageal Echocardiogram with color flow doppler, pulsed wave doppler and continuous wave doppler, moderate conscious sedation Moderate conscious sedation: Moderate conscious sedation was supplied by anesthesia, see separate report Complications: none Indications: Afib History: Patient is a pleasant 76-year-old male with history of new-onset cardiomyopathy and atrial fibrillation who presented for JAMAL/cardioversion. He has missed the last 2 days of anticoagulation secondary to running out of me dications. PROCEDURE: After the risks, benefits and alternatives of the above mentioned procedure was explained in detail with the patient, informed consent was obtained. Patient was brought to the lab in a fasting state. Patient was given sedation by anesthesia. The throat was sprayed with Hurricane to anesthetize the throat. A lubricated Omni probe was then introduced into the esophagus and stomach and multiple views were obtained. 2D echo with color flow doppler, pulsed wave doppler and continuous wave doppler was utilized. Agitated saline bubbles were injected to assess for any intra-atrial shunt. The probe was then removed. Patient tolerated the procedure well. Patient was transferred to the post procedure area in stable and satisfactory condition. FINDINGS: 1. The aortic valve is tricuspid with mild aortic sclerosis and no significant aortic stenosis or aortic regurgitation. 2. The mitral valve appears be normal and mild mitral regurgitation. 3. Tricuspid valve and mild to moderate tricuspid regurgitation. 4. The interatrial septum is intact. No evidence of PFO. 5. Left atrial appendage has an echodensity consistent with clot. 6. Left ventricular ejection fraction is 25% with global hypokinesis.
[2022-07-29 09:42] VITALS: TEMP 97.3
[2022-07-29 09:43] VITALS: RESP 18
[2022-07-29 12:41] VITALS: BP 120/92; PULSE 101
== END 2022-07-29 11:03 | disposition home or self-care (01) ==
LOC: CATHCVL 07:40
PROVIDERS: ATTEND Internal Medicine
DX: I48.19 Other persistent atrial fibrillation (principal); I08.1 Rheumatic disorders of both mitral and tricuspid valves; I70.0 Atherosclerosis of aorta; I11.0 Hypertensive heart disease with heart failure; I50.22 Chronic systolic (congestive) heart failure; E78.5 Hyperlipidemia, unspecified; Z79.82 Long term (current) use of aspirin; Z90.89 Acquired absence of other organs; Z79.899 Other long term (current) drug therapy
CPT/HCPCS: 93312; 93320; 93325; J2704; J2001

== ENCOUNTER → 2022-08-11 | Outpatient (CLI) | payer MEDICARE, OTHER ==
--- NOTE | 2022-08-11 14:17 | NM ---
EXAMINATION TYPE: NM parathyroid DATE OF EXAM: 08/11/2022 COMPARISON: NONE HISTORY: Elevated calcium TECHNIQUE: Following administration of 25.3 mCi Tc99m Sestamibi. Anterior projection images of the neck and ches t were obtained 10 minutes and 3 hours post injection FINDINGS: There is a focal area of intense uptake seen in the right thyroid bed which is seen on init ial images and persists on delayed images. IMPRESSION: Findings are suggestive of a right parathyroid adenoma.
== END | disposition home or self-care (01) ==
LOC: RADNMMAIN 08:11
PROVIDERS: ATTEND Internal Medicine
DX: E21.3 Hyperparathyroidism, unspecified (principal)
CPT/HCPCS: 78070; A9500

== ENCOUNTER 2022-11-03 06:40 | Inpatient (IN) | payer MEDICARE, OTHER ==
[2022-11-03] MEDS: FUROSEMIDE 100 MG in SODIUM CHLORIDE 0.9% 90 ML IV SCH ×2 (07:13→19:14)
[2022-11-03 07:16] LABS: Glucose,Whole Blood 119 mg/dL (70-110)
[2022-11-03 07:16] LABS: Basophils % (A) 0 %; Eosinophils # (A) 0.1 k/uL (0-0.7); Eosinophils % (A) 1 %; HCT 47.8 % (39.0-53.0); HGB 15.5 gm/dL (13.0-17.5); Lymphocytes # (A) 0.7 k/uL (1.0-4.8); Lymphocytes % (A) 10 %; MCHC 32.4 g/dL (31.0-37.0); MCV 104.7 fL (80.0-100.0); Macrocytosis Moderate; Mean Platelet Volume 7.4; Monocytes # (A) 0.5 k/uL (0-1.0); Monocytes % (A) 7 %; Neutrophils % (A) 79 %; Platelet Count 240 k/uL (150-450); RBC 4.56 m/uL (4.30-5.90); RDW 15.2 % (11.5-15.5); WBC 7.6 k/uL (3.8-10.6)
[2022-11-03 07:28] LABS: ALT 23 U/L (4-49); AST 23 U/L (17-59); African American GFR (CKD) 53 (>60 ml/min/1.73 sqM); Albumin 3.6 g/dL (3.5-5.0); Alkaline Phosphatase 84 U/L (38-126); Anion Gap 6 mmol/L; Blood Urea Nitrogen 29 mg/dL (9-20); Carbon Dioxide 31 mmol/L (22-30); Chloride 103 mmol/L (98-107); Glucose 134 mg/dL (74-99); Non-African American GFR(CKD) 46 (>60 ml/min/1.73 sqM); Potassium 4.8 mmol/L (3.5-5.1); Sodium 140 mmol/L (137-145); Total Bilirubin 0.8 mg/dL (0.2-1.3); Total Protein 6.5 g/dL (6.3-8.2)
[2022-11-03] MEDS ORDERED: PROPOFOL 10 MG/ML 20 ML VIAL IV ONE (08:44)
[2022-11-03] MEDS ORDERED: LIDOCAINE 2% INJ 20 MG/ML (2 ML VIAL) ONE ×2 (08:44→14:10)
--- NOTE | 2022-11-03 09:16 | P.HPCAR ---
History of Present Illness This is Dr. Zeng dictating an H/P on this patient The patient was interviewed and examined IMPRESSION / ASSESSMENT: Persistent atrial fibrillation with RVR Severe nonischemic cardio myopathy Failed amiodarone Creatinine 1.45, improved since before Prior creatinine was 2.0 Severe class III heart failure, severe LV dysfunction Normal coronary arteries PLAN: At this juncture the patient is very short of breath. Even at rest with orthopnea IV Lasix drip to be started for a few hours and then electrical cardioversion to sinus rhythm If his breathing improves in sinus rhythm with IV Lasix then we'll proceed with an A. fib ablation under general anesthesia Telemetry he is at very high risk for cardio vascular events including secondary to heart failure, under general anesthesia Continue amiodarone His creatinine was 2.0 and 1.9 previously and therefore dofetilide was not elected as an option The other option is device therapy with AV node ablation This will also require a biventricular device. At this time the patient is unable to lie flat for that too The other issue status post AV node ablation would be a risk of infection given the sores in his lower extremity, bilaterally Consider inpatient ENTRESTO in place of losartan HPI Patient remains very short of breath despite metoprolol and amiodarone. He is still in atrial fibrillation with RVR on amiodarone He is orthopnea, no chest discomfort ROS: No fever chills or rigors, no cough, phlegm or expectoration, no nausea, vomiting or diarrhea, no hematuria, dysuria, no musculoskeletal complaints, no strokes or seizures, no skin lesions. EXAMINATION: 136/98 mmHg Pulse rate resting of 110 beats a minute afebrile Breath sounds are reduced bilaterally Mild hepatojugular reflux Bilateral lower extremity edema with blistering of the skin REVIEW OF LABS, ECG & MEDICAL DATA Normal white count, normal hemoglobin 15.5 Sodium 140, potassium 4.8 BUN 29 and creatinine 1.45 Normal TSH Normal liver function Physical Exam Vitals: Vital Signs Temp Pulse Resp BP Pulse Ox 11/03/22 07:10 97.4 F L 105 H 18 136/98 92 L Intake and Output 11/02/22 11/03/22 11/03/22 22:59 06:59 14:59 Intake Total 70 Balance 70 Intake: IV 70 Other: Weight 134.1 kg Past Medical History Past Medical History: Atrial Fibrillation, Cancer, Heart Failure, Diabetes Mellitus, Deep Vein Thrombosis (DVT), Hypertension, Osteoarthritis (OA), Skin Disorder, Vascular Disorder Additional Past Medical History / Comment(s): See Dr. Zeng's H&P. Cardiomyopathy, Afib with RVR, past clot "found in his heart" per spouse then was "gone", skin cancer, spouse states pt is "right on the line of being diabetic", frequent falls, SOB and lately pt has been wearing oxygen at night only, bilateral leg edema/has leg "bubbles" that drain clear at times, benign colon polyps. History of Any Multi-Drug Resistant Organisms: None Reported Past Surgical History: Heart Catheterization, Tonsillectomy Additional Past Surgical History / Comment(s): TEEs/cardioversion, removal of skin cancer, colonoscopies/benign polypectomies Past Anesthesia/Blood Transfusion Reactions: No Reported Reaction Additional Past Anesthesia/Blood Transfusion Reaction / Comment(s): Pt has never had a blood transfusion. Smoking Status: Former smoker - Past Family History Father Additional Family Medical History / Comment(s): in early 60s of lung problems/was a smoker. Mother Family Medical History: No Reported History Additional Family Medical History / Comment(s): no reported heart disease Physical Examination Vital Signs Temp Pulse Resp BP Pulse Ox 11/03/22 07:10 97.4 F L 105 H 18 136/98 92 L Intake and Output 11/02/22 11/03/22 11/03/22 22:59 06:59 14:59 Intake Total 70 Balance 70 Intake: IV 70 Other: Weight 134.1 kg Results 11/03/22 07:00 11/03/22 07:00 Cardiac Enzymes 11/03/22 Range/Units 07:00 AST 23 (17-59) U/L CBC 11/03/22 Range/Units 07:00 WBC 7.6 (3.8-10.6) k/uL RBC 4.56 (4.30-5.90) m/uL Hgb 15.5 (13.0-17.5) gm/dL Hct 47.8 (39.0-53.0) % Plt Count 240 (150-450) k/uL Comprehensive Metabolic Panel 11/03/22 Range/Units 07:00 Sodium 140 (137-145) mmol/L Potassium 4.8 (3.5-5.1) mmol/L Chloride 103 (98-107) mmol/L Carbon Dioxide 31 H (22-30) mmol/L BUN 29 H (9-20) mg/dL Creatinine 1.45 H (0.66-1.25) mg/dL Glucose 134 H (74-99) mg/dL Calcium 10.0 (8.4-10.2) mg/dL AST 23 (17-59) U/L ALT 23 (4-49) U/L Alkaline Phosphatase 84 (38-126) U/L Total Protein 6.5 (6.3-8.2) g/dL Albumin 3.6 (3.5-5.0) g/dL Current Medications Generic Name Dose Route Start Last Admin Trade Name Freq PRN Reason Stop Dose Admin Sodium Chloride 1,000 mls @ 20 mls/hr 11/03/22 05:44 11/03/22 07:12 Saline 0.9% IV 12/03/22 05:45 20 mls .Q24H JEFF Administration Furosemide 100 mg/ Sodium 100 mls @ 10 mls/hr 11/03/22 06:00 11/03/22 07:13 Chloride IV 12/03/22 06:01 0 mls .Q10H JEFF Administration 10 MG/HR Lactated Ringer's 1,000 mls @ 20 mls/hr 11/03/22 05:44 Lactated Ringers IV 12/03/22 05:45 .Q24H JEFF Intake and Output 11/02/22 11/03/22 11/03/22 22:59 06:59 14:59 Intake Total 70 Balance 70 Intake: IV 70 Other: Weight 134.1 kg Patient Weight 11/04/22 06:59 Weight 134.1 kg 11/03/22 07:00 11/03/22 07:00
[2022-11-03] MEDS ORDERED: SACUBITRIL/VALSARTAN 24 MG-26 MG TABLET PO ONE (09:21)
[2022-11-03] MEDS ORDERED: SACUBITRIL/VALSARTAN 24 MG-26 MG TABLET PO SCH (09:30)
--- NOTE | 2022-11-03 13:53 | P.PN ---
Progress Note - Text Update Patient was deemed to be high risk on account of his severe heart failure and shortness of breath He was started on IV Lasix drip early this morning His procedure was withheld and he was maintained on IV Lasix drip I gave him a dose of entresto He was cardioverted this morning and he remains in sinus rhythm with PACs He has sinus tachycardia between 95-105 beats a minute He is better than he was this morning. He is able to lie flat but he is clearly short of breath I will feeling he may also have diaphragmatic paralysis in addition to severe heart failure from increased cardio myopathy He is maintaining his blood pressure well Impression Persistent atrial fibrillation status post Covid Severe nonischemic cardio myopathy Failed electrical cardioversion, previously in July Severe heart failure, on IV Lasix drip and started on ENTRESTO The anesthesiologist Dr. Lima and I had a very detailed conversation with the patient and his once again Clearly the patient would benefit from anglican of sinus rhythm since he has severe heart failure that has not responded to current medical treatment However the risks a substantial including on table, inability to extubate expeditiously, postoperative complications related to general anesthesia, fluid overload, worsening heart failure In addition, success rate for a single first ablation with PVI and linear ablation of the left atrial roof is less than or at best 50% The alternative is a device implantation with biventricular pacing followed by AV node ablation The duration of anesthesia will be similar for this procedure and his rhythm will not be affected. He will need an AV node ablation In addition I hesitate to perform an AV node ablation him on account of his lower extremity weeping edema and ulcerations and high risk of infection in the future, especially problematic since he really in AV node ablation All these aspects were discussed with the patient and his The patient did express his desire to proceed. We have asked him to reconsider his condition before making a final decision
[2022-11-03] MEDS ORDERED: HEPARIN SODIUM,PORCINE 5,000 UNIT/ML 1 ML VIAL ONE (14:10)
[2022-11-03] MEDS ORDERED: ePHEDrine 50 MG/ML 1 ML VIAL ONE (14:10)
[2022-11-03] MEDS ORDERED: fentaNYL (PF) 50 MCG/ML 2 ML AMP ONE (14:10)
[2022-11-03] MEDS ORDERED: SUCCINYLCHOLINE CHLORIDE 200 MG/10 ML VIAL IV ONE (14:10)
[2022-11-03] MEDS ORDERED: MIDAZOLAM 2 MG/2 ML VIAL ONE (14:10)
[2022-11-03] MEDS ORDERED: ETOMIDATE 2 MG/ML 10 ML VIAL ONE (14:10)
[2022-11-03] MEDS ORDERED: HEPARIN SODIUM,PORCINE 10,000 UNIT/ML 1 ML VIAL ONE (14:10)
[2022-11-03] MEDS ORDERED: KETAMINE 10 MG/ML 20 ML VIAL ONE (14:10)
[2022-11-03] MEDS ORDERED: FUROSEMIDE 10 MG/ML 2 ML VIAL ONE (14:10)
[2022-11-03] MEDS ORDERED: PROTAMINE SULFATE 10 MG/ML 5 ML VIAL IV ONE (14:10)
[2022-11-03] MEDS ORDERED: HEPARIN SOD,PORK IN 0.45% NACL 25,000 UNIT in 0.45% NACL 1 250ML.BAG IV ONE ×2 (14:50)
[2022-11-03] MEDS ORDERED: LIDOCAINE 1% INJ 10MG/ML (20 ML MDV) SQ ONE (14:57)
[2022-11-03 15:57] LABS: Calcium 9.2 mg/dL (8.4-10.2); Magnesium 2.5 mg/dL (1.6-2.3); Potassium 4.2 mmol/L (3.5-5.1)
--- NOTE | 2022-11-03 17:37 | P.EPPROC ---
- EP Procedure Note Electrophysiology Procedure Note: PROCEDURE A. fib ablation, pulmonary vein isolation, left atrial roof line Atrial tissue between left superior and left inferior pulmonary veins Atrial tissue between right superior and right inferior pulmonary veins DIAGNOSIS Persistent Atrial fibrillation, symptomatic, refractory to therapy Severe congestive heart failure, severe cardiomyopathy RESULT No left atrial appendage mass seen on intracardiac echo, thickened pericardium with effusion, organized particularly around the right atrium left atrium and the base of the LV Successful A. fib ablation/pulmonary vein isolation of all veins using cryo- ablation Complete entrance block in all 4 veins confirmed No evidence for phrenic nerve injury Esophageal deflection NO Electrical cardioversion with a synchronized shock across the chest YES, before and during the procedure PROCEDURE DETAILS Written informed consent prior to procedure. Patient brought to the EP lab. General anesthesia given. Heparin administered. A city maintained above 300 seconds Both groins prepped and draped per protocol and venous sheaths placed. Esophagus intubated, circa catheter for temperature monitoring an endoscope for possible esophageal deflection. Phrenic nerve monitoring performed. Esophageal temperature monitoring performed. Esophageal deflection performed if circa catheter overlapping with the balloon or circa temperature less than 27.5C Intracardiac echocardiography performed. Pericardium evaluated. Left atrial appendage evaluated. Left atrium evaluated along with pulmonary veins Transseptal catheterization performed under fluoroscopic guidance and intracardiac echo guidance Cryoablation sheath exchanged, balloon catheter along with achieve catheter placed in the left atrium. Pulmonary veins isolated in the following sequence: Left superior pulmonary vein followed by left inferior pulmonary vein, followed by right inferior pulmonary vein and lastly right superior pulmonary vein. Phrenic nerve stimulation along with capture thresholds within the SVC and right superior pulmonary vein to identify the phrenic nerve proximity to the cryo- balloon. Pulmonary veins isolated and confirmed with entrance and exit block. Phrenic nerve integrity confirmed at the end of the procedure Ablation of the left atrial roof performed with sequential lesions from the left superior to the right superior pulmonary veins. Ablation of the electrograms confirmed Ablation of the left atrial septum performed with cannulation of the superior branch of the right inferior or the inferior branch of the right superior vein to achieve ablation of the posterior septum of the left atrium. Ablation of electrograms confirmed Ablation of the atrial tissue/guilherme in between the left superior and left inferior pulmonary veins with abolition of electrograms Electrical cardioversion performed for persistence of atrial fibrillation despite successful ablation. Diagnostic catheters for the high right atrium, His bundle, coronary sinus placed. LA and RA pressures recorded RA pressure: 16/10/13 LA pressure: 10/04/14 Diagnostic EP study with coronary sinus pacing and recording Baseline measurements: Sinus cycle length 660 ms, OK interval 187 ms, QRS 210 ms right bundle branch block pattern and QT 463 mm Venous sheaths were removed and hemostasis assured with a closure device on the left side. Right-sided Vascade did not deploy and manual pressure was applied Patient extubated and transferred to ICU. No plans to extubate him tonight. Discussed with Dr. Giraldo and anesthesiologist Dr. Lima PROCEDURES PERFORMED Diagnostic EP study CS pacing and recording Left and right transseptal catheterization Catheter the mapping of the tachycardia Intracardiac echocardiography Pulmonary vein isolation with transseptal and comprehensive EPS, [id number] Left atrial roof line, +[id number] Linear ablation, left atrium, +[id number] Linear ablation, left atrium on the septum +[id number] Electrical cardioversion with a synchronized shock across the chest [id number]
[2022-11-03] MEDS ORDERED: IPRATROPIUM-ALBUTEROL 3 ML NEB INHALATION PRN (17:40)
[2022-11-03] MEDS ORDERED: NALOXONE 0.4 MG/ML 1 ML VIAL IV PRN (17:40)
[2022-11-03 18:14] LABS: Glucose,Whole Blood 147 mg/dL (70-110)
[2022-11-03] MEDS ORDERED: NOREPINEPHRIN 4 MG-0.9% NS PMX 4 MG/250 ML ML IV ONE (18:34)
[2022-11-03] MEDS ORDERED: SODIUM CHLORIDE 0.9% 2,000 ML IV ONE (18:37)
[2022-11-03 18:40] LABS: ABG Base Excess 4.5 mmol/L; ABG HCO3 30 mmol/L (21-25); ABG Oxygen Saturation 95.5 % (94-97); ABG PCO2 51 mmHg (35-45); ABG PH 7.38 (7.35-7.45); ABG PO2 72 mmHg (83-108); ABG TCO2 31 mmol/L (19-24)
[2022-11-03] MEDS ORDERED: NOREPINEPHRINE 4 MG in SODIUM CHLORIDE 0.9% 250 ML IV ONE (18:45)
[2022-11-03] MEDS ORDERED: ADENOSINE 3 MG/ML 2 ML VIAL IVP ONE (18:46)
[2022-11-03] MEDS ORDERED: ADENOSINE 3 MG/ML 2 ML VIAL IVP STA (18:47)
[2022-11-03] MEDS: NOREPINEPHRINE 8 MG in SODIUM CHLORIDE 0.9% 250 ML IV SCH (18:50)
[2022-11-03 19:16] LABS: MCH 35.2 pg (25.0-35.0); MCHC 32.6 g/dL (31.0-37.0); MCV 107.8 fL (80.0-100.0); Macrocytosis Marked; Mean Platelet Volume 7.6; Platelet Count 204 k/uL (150-450); RBC 3.72 m/uL (4.30-5.90); RDW 15.1 % (11.5-15.5); WBC 10.3 k/uL (3.8-10.6)
[2022-11-03] MEDS ORDERED: SODIUM CHLORIDE 0.9% 1,000 ML IV SCH (19:30)
[2022-11-03] MEDS ORDERED: SODIUM CHLORIDE 0.9% 500 ML 500 ML IV ONE (19:31)
[2022-11-03] MEDS: IPRATROPIUM-ALBUTEROL 3 ML NEB INHALATION SCH (19:38)
[2022-11-03 19:54] LABS: HCT 40.1 % (39.0-53.0); HGB 13.1 gm/dL (13.0-17.5)
--- NOTE | 2022-11-03 20:02 | XR ---
EXAMINATION TYPE: XR chest 1V portable DATE OF EXAM: 11/03/2022 HISTORY: Shortness of breath. COMPARISON: 09/10/2022 TECHNIQUE: Single view of the chest is submitted. FINDINGS: Endotracheal tube demonstrates its distal tip approximately 6.5 cm from the guilherme. NG tube seen cour sing into the stomach. There are perihilar and upper lobe infiltrates. No pneumothorax seen. The heart is stable. Hilar and mediastinal structures are within normal limits. Degenerative changes are seen of the dorsal spine. IMPRESSION: 1. Endotracheal and NG tubes as noted. 2. Perihilar and upper lobe infiltrates may reflect developing pulmonary edema. Infiltrates of other etiology not excluded.
--- NOTE | 2022-11-03 20:06 | P.PN ---
Progress Note - Text Postprocedure course A. fib ablation Procedure completed. Intracardiac echo at the end of the procedure did not demonstrate any new or w orsening effusion patient has a known chronic effusion with exudate that was demonstrated preprocedure by intracardiac echo Postprocedure he developed a hematoma in the right groin Inability to deploy Vascade [id number] suture employed Manual compression and FemStop applied Nevertheless the patient does have a fairly large hematoma Consulted Dr. Bergeron Ultrasound of the groin ordered Patient taken to the ICU since we had electively planned not to extubate him, prior to starting the procedure Patient was tachycardic and hypotensive when he reached the ICU Received IV fluids 2 L He does have a hematoma in the groin but his repeat hematocrit was 40 Recheck hematocrit in 3 hours Continue IV fluids On norepinephrine and the dose is being lowered gradually Transthoracic echo performed by me in the ICU No new pericardial effusion other than his old small chronic pericardial effusion LV contractility vigorous Plan Improvement in blood pressure after receiving IV fluids Continue IV fluids. An additional 500 bolus given and then taper off norepinephrine to as low as possible, MAP 80 Hold xarelto Repeat hematocrit at 10 PM tonight Patient will remain on a ventilator, intubated tonight Discussed with his
[2022-11-03] MEDS ORDERED: CHLORHEXIDINE GLUCONATE 15 ML CUP MUCOUS MEM SCH (21:00)
[2022-11-03 21:44] LABS: Glucose,Whole Blood 181 mg/dL (70-110)
[2022-11-03 21:59] LABS: Basophils % (A) 0 %; Eosinophils % (A) 0 %; HCT 41.5 % (39.0-53.0); HGB 13.1 gm/dL (13.0-17.5); Lymphocytes # (A) 0.7 k/uL (1.0-4.8); Lymphocytes % (A) 5 %; MCH 34.5 pg (25.0-35.0); MCHC 31.5 g/dL (31.0-37.0); MCV 109.4 fL (80.0-100.0); Macrocytosis Marked; Monocytes # (A) 0.9 k/uL (0-1.0); Monocytes % (A) 6 %; Neutrophils % (A) 87 %; Platelet Count 226 k/uL (150-450); RDW 15.3 % (11.5-15.5)
[2022-11-03] MEDS ORDERED: METOPROLOL TARTRATE 12.5 MG TAB PO SCH (22:00)
[2022-11-03] MEDS: VASOPRESSIN 20 UNIT in SODIUM CHLORIDE 0.9% 50 ML IV SCH (22:28)
[2022-11-04] MEDS: NOREPINEPHRINE 8 MG in SODIUM CHLORIDE 0.9% 250 ML IV SCH ×3 (00:35→04:32)
[2022-11-04] MEDS: IPRATROPIUM-ALBUTEROL 3 ML NEB INHALATION SCH ×2 (00:36→03:56)
--- NOTE | 2022-11-04 00:57 | XR ---
EXAM: XR Chest, 1 View CLINICAL HISTORY: ITS.REASON XR Reason: soft tissue swelling TECHNIQUE: Frontal view of the chest. COMPARISON: Chest radiograph 11/03/2022. FINDINGS: Lungs: Complete opacification of the right hemithorax with shift of the trachea to the right, new from prior exam. Pleural space: No large pneumothorax. Heart: Cardiomegaly. Bones/joints: Degenerative change in the spine. Tubes, lines and devices: Endotracheal tube and enteric tube are present. Endotracheal tube tip approximately 4.1 cm from the guilherme. IMPRESSION: Complete opacification of the right hemithorax with shift of the trachea to the right, new from prior exam. This is compatible with collapse of the right lung. Clinical correlation is recommended.
[2022-11-04] MEDS ORDERED: CISATRACURIUM 2 MG/ML 5 ML VIAL IV ONE ×2 (01:08→01:11)
[2022-11-04] MEDS ORDERED: HYDROCORTISONE SUCCINATE 100 MG/2 ML VIAL IV STA (01:36)
[2022-11-04 01:40] LABS: ABG Base Excess -5.5 mmol/L; ABG HCO3 23 mmol/L (21-25); ABG Oxygen Saturation 89.3 % (94-97); ABG PCO2 65 mmHg (35-45); ABG PO2 65 mmHg (83-108); ABG TCO2 25 mmol/L (19-24); Allen Test Performed? Yes
--- NOTE | 2022-11-04 01:42 | XR ---
EXAM: XR Chest, 1 View CLINICAL HISTORY: central line placement TECHNIQUE: Frontal view of the chest. COMPARISON: November 03, 2022 FINDINGS: There is a new left jugular central venous catheter with the tip in the superior vena cava. There is a significant interval increase in right pleural effusion with underlying atelectasis. There is also increasing atelectasis in the left lung base. No pneumothorax. IMPRESSION: Central venous catheter tip in the superior vena cava without complications. Increasing right pleural effusion.
[2022-11-04 01:45] LABS: ABG PH 7.16 (7.35-7.45)
[2022-11-04] MEDS ORDERED: SODIUM CHLORIDE 0.9% 50 ML with HYDROCORTISONE SUCCINATE 500 MG IVPB SCH ×2 (02:00)
[2022-11-04] MEDS ORDERED: SODIUM CHLORIDE 0.9% 1,000 ML IV ONE (02:14)
--- NOTE | 2022-11-04 02:34 | P.CNPUL ---
History of Present Illness Consult date: 11/04/22 Requesting physician: Chin Zeng Reason for consult: other (ICU management) Chief complaint: Postoperative Hypotension and shock History of present illness: I am seeing this patient in new consultation today 11/04/2022 for ICU management. Patient is a 76-year-old white male with a significant medical history of persistent atrial fibrillation, severe nonischemic cardiomyopathy, se stevan class III heart failure with severe left ventricular dysfunction with a baseline ejection fraction of 20-25% %, chronic kidney disease, diabetes mellitus type 2, DVT, hypertension. Patient was brought in for an elective cardiac ablation with Dr. Zeng on 11/03/2022. Postoperatively, patient had profound hypotension. Patient did have a large right femoral hematoma at the procedural access site. Apparently, the right-sided vascular device did not deploy. The site was manually reduced, and currently has a FemoStop in place. Patient was transferred to the intensive care unit. Patients hemoglobin postoperatively has remained stable at 13 g/dL. Vascular consult was placed. In the meantime, the patient's hypotension was refractory to fluid replacement with 2.5 L crystalloid bolus. Patient currently has Levophed infusing at 50 mics per minute, a physiological dose of vasopressin infusing at 0.04 units per minute, normal saline infusing at 100 ml per hour, and low-dose propofol infusing at 20 mics particularly per minute for sedation. Patient's heart rate is sinus tachycardia at a rate of 130 beats per minutes. Apparently, Dr. Zeng performed a bedside echocardiogram postoperatively which did not show a significant pericardial effusion or tamponade. Patient was left intubated postoperatively with ventilator settings of assist control, respiratory rate 16, tidal volume 450, FiO2 100%, PEEP of 5. Patient's immediate postoperative ABG showed a pO2 of 72, pCO2 of 51, pH of 7.38. Chest x-ray initially showed endotracheal tube that was 6.5 cm from the guilherme, and NG tube coursing into the stomach, and perihilar and upper lobe infiltrate infiltrates thought to reflect pulmonary edema. ET tube was advanced 2 centimeters. Later tonight, patient developed increased peak airway pressures of 40 and reduce the lateral chest wall movement. Repeat chest x-ray was done which showed volume loss and complete collapse of the right lung. Dr. Giraldo did perform a bedside bronchoscopy for mucous plug. A repeat chest x-ray after the procedure showed partial reinflation of the right lung, increasing right pleural effusion, central venous catheter with tip in the superior vena cava. No pneumothorax. Repeat ABGs showed a component of respiratory acidosis. CO2 65, pCO2 65, pH 7.16. The patient's respiratory rate was increased to 24. A left IJ triple- lumen catheter was inserted. And a right wrist arterial line was inserted. Patient was given a trial dose of Solu-Cortef for suspected adrenal insufficiency with an improvement in the patient's profound hypotension. Patient was also given an additional 1 L normal saline bolus. Currently the patient's is at the bedside. The patient's overall poor prognosis was explained. At this time, patient is a full code, and his condition is critical. Review of Systems Unable to obtain a review of systems due to the patient being intubated and sedated Past Medical History Past Medical History: Atrial Fibrillation, Cancer, Heart Failure, Diabetes Mellitus, Deep Vein Thrombosis (DVT), Hypertension, Osteoarthritis (OA), Skin Disorder, Vascular Disorder Additional Past Medical History / Comment(s): See Dr. Zeng's H&P. Cardiomyopathy, Afib with RVR, past clot "found in his heart" per spouse then w as "gone", skin cancer, spouse states pt is "right on the line of being diabetic", frequent falls, SOB and lately pt has been wearing oxygen at night only, bilateral leg edema/has leg "bubbles" that drain clear at times, benign colon polyps. History of Any Multi-Drug Resistant Organisms: None Reported Past Surgical History: Heart Catheterization, Tonsillectomy Additional Past Surgical History / Comment(s): TEEs/cardioversion, removal of skin cancer, colonoscopies/benign polypectomies, EP Ablation 11/03/22 Past Anesthesia/Blood Transfusion Reactions: No Reported Reaction Additional Past Anesthesia/Blood Transfusion Reaction / Comment(s): Pt has never had a blood transfusion. Past Psychological History: No Psychological Hx Reported Additional Psychological History / Comment(s): Pt resides with his spouse. 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 He has lately been using oxygen at night Smoking Status: Former smoker Past Alcohol Use History: None Reported Additional Past Alcohol Use History / Comment(s): Smoked as a teen in high school then quit. Past Drug Use History: None Reported - Past Family History Father Additional Family Medical History / Comment(s): in early 60s of lung problems/was a smoker. Mother Family Medical History: No Reported History Additional Family Medical History / Comment(s): no reported heart disease Medications and Allergies Home Medications Medication Instructions Recorded Confirmed Type Aspirin [Adult Low Dose Aspirin EC] 81 mg PO QAM 07/16/15 11/03/22 History Dorzolamide HCl/Pf [Dorzolamide 2% 1 drop BOTH EYES BID 06/21/22 11/03/22 History Eye Drop] Latanoprost [Latanoprost 0.005%] 1 drop BOTH EYES HS 06/21/22 11/03/22 History Dapagliflozin Propanediol [Farxiga] 10 mg PO QAM 07/29/22 11/03/22 History Furosemide [Lasix] 80 mg PO BID #180 tablet 09/11/22 11/03/22 Rx Metoprolol Succinate [Toprol XL] 50 mg PO BID #180 tab 09/11/22 11/03/22 Rx Amiodarone [Cordarone] 200 mg PO QAM 10/31/22 11/03/22 History Losartan [Cozaar] 50 mg PO QAM 10/31/22 11/03/22 History Potassium Chloride ER [K-Dur 20] 20 meq PO QAM 10/31/22 11/03/22 History Rivaroxaban [Xarelto] 20 mg PO QAM 10/31/22 11/03/22 History Allergies Allergy/AdvReac Type Severity Reaction Status Date / Time No Known Allergies Allergy Verified 10/31/22 08:42 Physical Exam Vitals: Vital Signs Temp Pulse Pulse Pulse Resp BP BP 11/04/22 00:41 11/04/22 00:15 137 H 16 11/04/22 00:00 124 H 15 11/03/22 23:45 137 H 25 H 11/03/22 23:30 134 H 16 73/43 11/03/22 23:15 134 H 21 71/49 11/03/22 23:00 135 H 22 94/79 11/03/22 22:45 134 H 23 80/47 11/03/22 22:30 134 H 18 76/45 11/03/22 22:15 134 H 25 H 79/63 11/03/22 22:00 135 H 22 78/52 11/03/22 21:45 135 H 21 88/62 11/03/22 21:30 140 H 31 H 93/79 11/03/22 21:15 140 H 26 H 93/79 11/03/22 21:00 138 H 24 111/61 11/03/22 20:45 140 H 28 H 80/64 11/03/22 20:30 137 H 32 H 100/73 11/03/22 20:15 134 H 25 H 89/63 11/03/22 20:06 16 11/03/22 20:00 97.6 F 133 H 21 89/69 11/03/22 19:45 133 H 12 99/81 11/03/22 19:34 11/03/22 19:30 135 H 16 107/61 11/03/22 19:15 135 H 16 113/77 11/03/22 19:10 134 H 11/03/22 19:05 135 H 109/86 11/03/22 19:00 96.3 F L 133 H 16 101/56 11/03/22 18:55 133 H 101/56 11/03/22 18:50 131 H 11/03/22 18:45 133 H 11/03/22 18:41 134 H 110/81 11/03/22 18:11 11/03/22 17:40 11/03/22 11:08 100 18 135/97 11/03/22 10:38 106 H 18 149/95 11/03/22 10:08 100 18 144/97 11/03/22 09:53 98 18 138/98 11/03/22 09:38 96 18 146/95 11/03/22 09:23 92 18 148/90 11/03/22 09:08 93 18 140/91 11/03/22 07:10 97.4 F L 105 H 18 136/98 Pulse Ox FiO2 11/04/22 00:41 100 11/04/22 00:15 11/04/22 00:00 100 11/03/22 23:45 80 L 11/03/22 23:30 99 11/03/22 23:15 11/03/22 23:00 94 L 11/03/22 22:45 95 11/03/22 22:30 94 L 11/03/22 22:15 94 L 11/03/22 22:00 94 L 100 11/03/22 21:45 94 L 11/03/22 21:30 97 11/03/22 21:15 96 11/03/22 21:00 97 11/03/22 20:45 97 11/03/22 20:30 99 11/03/22 20:15 97 11/03/22 20:06 100 11/03/22 20:00 99 100 11/03/22 19:45 87 L 11/03/22 19:34 100 11/03/22 19:30 98 11/03/22 19:15 97 11/03/22 19:10 98 11/03/22 19:05 97 11/03/22 19:00 97 100 11/03/22 18:55 97 11/03/22 18:50 95 11/03/22 18:45 94 L 11/03/22 18:41 94 L 11/03/22 18:11 100 11/03/22 17:40 100 11/03/22 11:08 98 11/03/22 10:38 98 11/03/22 10:08 98 11/03/22 09:53 98 11/03/22 09:38 98 11/03/22 09:23 98 11/03/22 09:08 98 11/03/22 07:10 92 L Intake and Output 11/03/22 11/03/22 11/04/22 14:59 22:59 06:59 Intake Total 655 2823.085 252.403 Output Total 1100 1240 5 Balance -445 1583.085 247.403 Intake: IV 655 2700 100 Sodium Chloride 0.9% 1, 200 100 000 ml @ 100 mls/hr IV . Q10H [facility] Rx#:[id number] Sodium Chloride 0.9% 2, 2000 000 ml @ 999 mls/hr IV . Q2H1M [facility] Rx#:[id number] Sodium Chloride 0.9% 500 500 ml 500 ml @ 999 mls/hr IV .Q31M [facility] Rx#:[id number] Intake, IV Titration 123.085 152.403 Amount Norepinephrine 8 mg In 105.048 152.403 Sodium Chloride 0.9% 250 ml @ 0.03 MCG/KG/MIN 7. 785 mls/hr IV .Q24H [facility] Rx#:[id number] propofoL 1,000 mg In 18.037 Empty Bag 1 bag @ 15 MCG/ KG/MIN 12.069 mls/hr IV . Q8H18M [facility] Rx#:[id number] Output: Urine 1100 1240 5 Uretheral (Frausto) 600 Other: Voiding Method Indwelling Catheter Weight 134.1 kg 134.1 kg ABP, PAP, CO, CI - Last 8 Hours Arterial Blood Pressure 58/48 Arterial Blood Pressure 74/60 Arterial Blood Pressure 60/54 Arterial Blood Pressure 76/59 Arterial Blood Pressure 79/79 Arterial Blood Pressure 74/62 Arterial Blood Pressure 74/59 Arterial Blood Pressure 89/69 Arterial Blood Pressure 89/69 Arterial Blood Pressure 84/67 Arterial Blood Pressure 98/75 Arterial Blood Pressure 122/85 Arterial Blood Pressure 119/81 Arterial Blood Pressure 124/83 Arterial Blood Pressure 119/82 Arterial Blood Pressure 120/82 Arterial Blood Pressure 100/72 Arterial Blood Pressure 106/73 Arterial Blood Pressure 78/63 Arterial Blood Pressure 84/66 GENERAL EXAM: Sedated and intubated 76-year-old white male HEAD: Normocephalic and atraumatic EYES: Normal reaction of pupils, equal size. NOSE: Clear with pink turbinates. THROAT: No erythema or exudates. Endotracheally intubated NECK: No masses, no JVD. Right IJ triple-lumen in place CHEST: No chest wall deformity. LUNGS: Equal air entry with diffuse bilateral crackles and rhonchi. No wheeze, or focal dullness. Intubated to the mechanical ventilator CVS: S1 and S2 normal with no audible murmur, regular rhythm. No extra heart sounds ABDOMEN: No hepatosplenomegaly, active bowel sounds, no guarding or rigidity. SPINE: No scoliosis or deformity SKIN: No rashes CENTRAL NERVOUS SYSTEM: No focal deficits, tone is normal in all 4 extremities. EXTREMITIES: There is bilateral lower extremity 4+ pitting edema. No clubbing, or cyanosis. Peripheral pulses are intact. Results - Laboratory Findings CBC and BMP: 11/03/22 21:45 11/03/22 15:45 ABG ABG pH 7.38 (7.35-7.45) 11/03/22 18:38 ABG pCO2 51 mmHg (35-45) H 11/03/22 18:38 ABG pO2 72 mmHg (83-108) L 11/03/22 18:38 ABG O2 Saturation 95.5 % (94-97) 11/03/22 18:38 Abnormal lab findings: Abnormal Labs 11/03/22 11/03/22 11/03/22 07:00 07:00 07:05 WBC RBC MCV 104.7 H MCH Neutrophils # Lymphocytes # 0.7 L Macrocytosis ABG pCO2 ABG pO2 ABG HCO3 ABG Total CO2 Carbon Dioxide 31 H BUN 29 H Creatinine 1.45 H Glucose 134 H POC Glucose (mg/dL) 119 H Magnesium Crossmatch 11/03/22 11/03/22 11/03/22 15:45 15:45 18:13 WBC RBC MCV MCH Neutrophils # Lymphocytes # Macrocytosis ABG pCO2 ABG pO2 ABG HCO3 ABG Total CO2 Carbon Dioxide 34 H BUN 26 H Creatinine 1.49 H Glucose 128 H POC Glucose (mg/dL) 147 H Magnesium 2.5 H Crossmatch See Detail 11/03/22 11/03/22 11/03/22 18:38 18:47 21:42 WBC RBC 3.72 L MCV 107.8 H MCH 35.2 H Neutrophils # Lymphocytes # Macrocytosis Marked A ABG pCO2 51 H ABG pO2 72 L ABG HCO3 30 H ABG Total CO2 31 H Carbon Dioxide BUN Creatinine Glucose POC Glucose (mg/dL) 181 H Magnesium Crossmatch 11/03/22 21:45 WBC 15.0 H RBC 3.80 L MCV 109.4 H MCH Neutrophils # 13.0 H Lymphocytes # 0.7 L Macrocytosis Marked A ABG pCO2 ABG pO2 ABG HCO3 ABG Total CO2 Carbon Dioxide BUN Creatinine Glucose POC Glucose (mg/dL) Magnesium Crossmatch - Diagnostic Findings Chest x-ray: image reviewed Assessment and Plan Assessment: Suspected cardiogenic shock. Patient is postop cardiac ablation for persistent atrial fibrillation with rapid ventricular rate with Dr. Zeng. Postoperatively, patient developed profound hypotension refractory to fluid resuscitation and maximal vasopressors. Patient does have history of severe systolic congestive heart failure with an ejection fraction of 20-25% at baseline Acute hypoxemic and hypercapnic respiratory failure secondary to above. Patient did develop a mucous plug with right-sided volume loss and complete collapse of the right hemithorax. A bronchoscopy was performed and a postprocedure chest x-ray showed resolution of the right volume loss Suspected relative adrenal insufficiency. Patient did respond to a trial dose of 100 mg Solu-Cortef IV push Right femoral hematoma status post mechanical reduction. Acute on chronic kidney disease. Patient has been in anuric postoperatively. Diabetes mellitus type 2 History of DVT Plan: Patient's medications, labs, chest x-ray reviewed Patient is currently mechanically ventilated with settings of assist control, respiratory rate of 24, tidal volume 450, FiO2 100%, PEEP of 5 Patient did undergo bronchoscopy for mucous plug. Patient's peak airway pressure is down to 25 and plateau pressure remains low at 18. Repeat chest x- ray showed improvement in the right-sided volume loss Continue maximal vasopressor support in the form of Levophed and vasopressin A left internal jugular triple lumen central line catheter was inserted successfully without complication A right radial arterial line inserted for pressure monitoring and lab draws Start the patient on hydrocortisone infusion at 15 mg per hour Given an additional 1 L normal saline bolus once now. Lactic acid level pending The patient sedated on propofol to maintain mechanical ventilator synchrony Stat echocardiogram was ordered Vascular consult was placed for right femoral hematoma Monitor H&H and signs of acute blood loss Continue FemoStop for now Repeat ABG in 1 hour and monitor for resolution of respiratory acidosis Patient's condition is critical, and overall prognosis is extremely poor. Patient is a full code at this time. I have personally seen and examined the patient, performed the documentation and the assessment and plan as written. Number of minutes spent on the visit:30 Time with Patient: Greater than 30
--- NOTE | 2022-11-04 02:43 | P.PCN ---
Date of Procedure: 11/04/22 Preoperative Diagnosis: Postoperative hypotension and shock Postoperative Diagnosis: Postoperative hypotension and shock Procedure(s) Performed: Insertion of a right radial arterial line Anesthesia: none Disposition: ICU Indications for Procedure: Frequent blood pressure monitoring and lab draws Description of Procedure: The patient was placed in supine position, and the right radial region was prepped in a sterile fashion, and a drape was applied. The right radial artery was palpated, easily cannulated, and guidewire was placed. A Cook catheter was inserted over the guidewire, and the guidewire was removed. There was good blood flow, a good arterial waveform, and no complications. Line was secured with a 3-0 silk suture. The procedure was supervised by Dr. Giraldo.
[2022-11-04 03:32] LABS: ABG HCO3 21 mmol/L (21-25); ABG PCO2 49 mmHg (35-45); ABG PH 7.23 (7.35-7.45); ABG TCO2 22 mmol/L (19-24); Allen Test Performed? Yes
[2022-11-04 03:38] LABS: ABG PO2 58 mmHg (83-108)
[2022-11-04] MEDS: VASOPRESSIN 20 UNIT in SODIUM CHLORIDE 0.9% 50 ML IV SCH (04:33)
--- NOTE | 2022-11-04 05:09 | OP ---
OPERATIVE REPORT DATE OF SERVICE : PROCEDURE PERFORMED: Left internal jugular triple-lumen catheter. PREOPERATIVE DIAGNOSES: Hypotension, administration of fluids and pressors. POSTOPERATIVE DIAGNOSES: Hypotension, administration of fluids and pressors. CO-SURGEON: SILVINA Willingham. We used the left internal jugular site. We went through the posterior approach. TRIPLE LUMEN CATHETER PLACEMENT: Indication: Hemodynamic monitoring/Intravenous access. A time-out was completed verifying correct patient, procedure, site, positioning, and implant(s) or special equipment if applicable. The patient was placed in a dependent position appropriate for triple lumen catheter placement based on the vein to be cannulated. The patient's left neck was prepped and draped in sterile fashion. 1% Lidocaine was used to anesthetize the surrounding skin area. A triple lumen 9F Cordis catheter was introduced into the left internal jugular vein using Seldinger technique. The catheter was threaded smoothly over the guide wire and appropriate blood return was obtained. Each lumen of the catheter was evacuated of air and flushed with sterile saline. The catheter was then sutured in place to the skin and a sterile dressing applied. Perfusion to the extremity distal to the point of catheter insertion was checked and found to be adequate. There was good blood return and waveform. The catheter was sutured in place. A sterile dressing was applied by the nurse. The tip of the catheter was seen in the area of the junction of the superior vena cava right atrium. The patient tolerated the procedure well without difficulty. There was no immediate complication. EMERGENT BRONCHOSCOPY: PREOPERATIVE DIAGNOSES: Mucus plugging and collapse of the right lung. POSTOPERATIVE DIAGNOSES: Mucus plugging and collapse of the right lung. DIRECTOR OF COLLECTIONS: Assisted by SILVINA Willingham. DESCRIPTION OF PROCEDURE: The patient was sedated with propofol running at 20 mcg/kg per minute and the patient did receive 50 mg of Nimbex prior to the procedure. The portable bronchoscope was inserted through the bronchoscope adapter, connected to the endotracheal tube. The bronchoscope was taken through the endotracheal tube into the trachea. The tip of the trachea was above the tracheal guilherme. The left lung was pretty clear. That included left upper lobe proper, lingula and left lower lobe. On the right side, there was thick mucus noted emanating from the proximal right mainstem. The secretions were suctioned with some difficulty given the suction limitations of the small scope. Eventually, the mucus plugs were removed from the right upper lobe, right middle lobe and right lower lobe. We used multiple saline aliquots to accomplish this. The patient tolerated the procedure well. The patient was stable throughout the procedure. There was no immediate complication and the post bronch x-ray looked much improved although there was still some collapse noted to the right upper lobe area. Again, there was no immediate complication. The bronchoscope was withdrawn and the patient tolerated the procedure well without problems. MMODTeddy / YONGN: [id number] /
[2022-11-04 05:38] VITALS: BP 64/26; TEMP 96.9
[2022-11-04] MEDS ORDERED: MORPHINE SULFATE (100 MG/2 ML) 100 MG in SODIUM CHLORIDE 0.9% 100 ML IV SCH (06:00)
[2022-11-04] MEDS ORDERED: SCOPOLAMINE 1 MG/72 HR PATCH TRANSDERM SCH (06:00)
[2022-11-04 07:30] VITALS: PULSE 109; RESP 16
[2022-11-04] MEDS ORDERED: ASPIRIN 81 MG PO SCH (09:00)
[2022-11-04] MEDS ORDERED: DAPAGLIFLOZIN PROPANEDIOL 10 MG TABLET PO SCH (09:00)
[2022-11-04] MEDS ORDERED: AMIODARONE 200 MG TAB PO SCH (09:00)
[2022-11-04] MEDS ORDERED: PANTOPRAZOLE 40 MG/10 ML VIAL IV SCH (09:00)
--- NOTE | 2022-12-04 10:54 | P.DS ---
Providers Date of admission: 11/03/22 17:38 Attending physician: Chin Zeng Consults: 11/03/22 17:46 Consult Physician Routine Consulting Provider: Nigel Giraldo Consult Reason/Comments: ICU/vent. 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 and heart failure with atrial fibrillation with RVR in the month of July Developed Left atrial appendage thrombus precluding electrical cardioversion in July Treated with oral anticoagulation and amiodarone and then underwent electrical cardioversion after confirming resolution of left atrial appendage thrombus subsequently Atrial fibrillation recurred 6 hours after this electrical cardioversion Subsequently the patient had a progressive worsening of heart failure symptoms with bilateral lower extremity edema and shortness of breath at rest Extremely symptomatic Normal coronary arteries by coronary angiography Significant bilateral lower extremity edema with weeping ulcers and blistering Creatinine was between 1.9-2.0 at that time. I'm in the office The patient was referred for management of atrial fibrillation by Dr. Null In the office We discussed options including 1. rate control and anticoagulation only, 2. rhythm controlled with amiodarone but this is already failed, 3. dofetilide and the issue of elevated creatinine precluding its use, 4. A. fib ablation and overall low success rates given the cardio myopathy and the risks of general anesthesia for about 3 hours, 5. biventricular pacing and AV node ablation, with the attendant risks of anesthesia as well as risks of infection. Likelihood of requiring general anesthesia during this procedure Patient was brought in for an A. fib ablation. He was brought in early to the [facility] for an IV Lasix drip and evaluation by anesthesia He was quite short of breath at rest, sitting up and was deemed high risk for general anesthesia by Dr. Lima. I concurred with his opinion We decided to proceed with an electrical cardioversion only, on amiodarone, continuation of IV Lasix drip for several hours, initiating ENTRESTO Hemoglobin 15.5, hematocrit 47.8, normal white count Normal potassium Creatinine 1.45, normal TSH normal liver function on amiodarone He underwent successful electrical cardioversion to sinus rhythm in the EP lab and was brought back to the [facility] for continuation of IV Lasix and incision of IV entresto We discussed the risk of general anesthesia, mechanical intubation with the patient and recommended medical treatment first After 3-4 hours the patient was reevaluated. He stated that he was feeling better and was able to lie flat comfortably I made him lie supine for about 15-20 minutes. He was mildly short of breath but is able to lie flat in bed However he was clearly at risk for mechanical intubation and general anesthesia and Dr. Lima and I had a very detailed discussion with him and his It was stated to him in very clear terms that his likelihood of on table secondary to the effects of general anesthesia, likelihood of inability to extubate him following that was still high despite a mild improvement The patient was adamant about proceeding with some form of treatment for his atrial fibrillation since he had severe heart failure and a very poor quality of life His quality of life was so poor that he was willing to accept a very high risk I encouraged him to think about it again, speak to his and speak to other family members and call them for a discussion However the patient requested that we proceed with an ablation understanding that his risks are quite high as well as the chances of maintaining sinus rhythm were low I did discuss the option of biventricular pacing and AV node ablation but given his shortness of breath while lying supine, these 2 procedures would also require general anesthesia and approximately same time as that of an A. fib ablation. Therefore the risk of general anesthesia and mechanical intubation remained. Medical treatment and inpatient hospitalization was also recommended, however the patient requested that we proceed with an A. fib ablation The patient underwent an A. fib ablation with pulmonary vein isolation and ablation of the left atrial roof successfully He tolerated the procedure remarkably well During the procedure, with catheter manipulation, he would go into atrial fibrillation with RVR with a drop in blood pressure, necessitating electrical cardioversions through the procedure Nevertheless he tolerated the procedure very well Intracardiac echo revealed reduced LV systolic function with chronic exudative effusion within the pericardial space consistent with his history of viral myopericarditis At the end of the procedure he did have a hematoma in the right groin on account of increased BMI and inability to successfully place the Vascade closure device in the right groin I spoke to his and explained that he tolerated the general anesthesia and the A. fib ablation extremely well. Successful pulmonary vein isolation and linear ablation of left atrium was performed. He did have a hematoma in the right groin but this was stable We will able to apply the [id number] stitch and apply compression to the site. Follow-up hematocrit was about 40 and repeat hematocrit a few hours later remained stable at 41.5 Given his severity of heart failure he was kept intubated and taken to the ICU with the plan of extubation the next day after continued IV diuresis However in the ICU he experienced sinus tachycardia with hypotension IV pressors, norepinephrine was started IV fluids were administered by Dr. Giraldo, the assistant associate full professor I spoke to his at that time and stated that while he had tolerated the ablation procedure quite well he did have this hematoma in the right groin and that his condition was critical at this time I repeated his 2-D echo in the ICU, to look for any worsening pericardial effusion. Limited 2-D echo in the ICU was performed by me revealed a hypercontractile left ventricle and the small chronic pericardial effusion only Absence of any new or worsening effusion in the pericardial Later, it was confirmed that there was no progressive drop in his hemoglobin and hematocrit either based upon repeat The patient's sinus tachycardia became worse over time He became hypoxic with high pressures during ventilation His first chest x-ray showed increased markings but the follow-up x-ray revealed opacification of the right lung with loss of volume and ipsilateral tracheal deviation, consistent with volume loss of the right lung The endotracheal tube was in good position A diagnosis of the mucosal plugging resulting in volume loss of the right lung was made and I spoke to Dr. Giraldo, who came in to perform a bronchoscopic large A bronchoscopic lavage was performed by Dr. Giraldo and mucus plugs were noted e xtensively through the right bronchus and beyond. There was partial clearing of the right lung. Thereafter he was given IV steroids which resulted in transient improvement in blood pressure However the patient finally succumbed to progressive hypoxia and respiratory failure on account of this collapse of the right lung with volume loss on account of extensive mucosal plugging Final diagnosis Cause of : hypoxic respiratory failure with collapse of the right lung on account of volume loss due to extensive mucosal plugging that did not respond to bronchoscopic lavage Covid related myopericarditis/severe cardio myopathy and persistent atrial fibrillation that was difficult to control or maintain normal rhythm 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 fib ablation under general anesthesia which was very well tolerated by the patient Plan - Discharge Summary Discharge Rx Participant: No New Discharge Prescriptions: No Action Aspirin [Adult Low Dose Aspirin EC] 81 mg PO QAM Dorzolamide HCl/Pf [Dorzolamide 2% Eye Drop] 1 drop BOTH EYES BID Latanoprost [Latanoprost 0.005%] 1 drop BOTH EYES HS Dapagliflozin Propanediol [Farxiga] 10 mg PO QAM Metoprolol Succinate [Toprol XL] 50 mg PO BID #180 tab Rivaroxaban [Xarelto] 20 mg PO QAM Potassium Chloride ER [K-Dur 20] 20 meq PO QAM Furosemide [Lasix] 80 mg PO BID #180 tablet Losartan [Cozaar] 50 mg PO QAM Amiodarone [Cordarone] 200 mg PO QAM Discharge Medication List Aspirin [Adult Low Dose Aspirin EC] 81 mg PO QAM 07/16/15 [History] Dorzolamide HCl/Pf [Dorzolamide 2% Eye Drop] 1 drop BOTH EYES BID 06/21/22 [History] Latanoprost [Latanoprost 0.005%] 1 drop BOTH EYES HS 06/21/22 [History] Dapagliflozin Propanediol [Farxiga] 10 mg PO QAM 07/29/22 [History] Furosemide [Lasix] 80 mg PO BID #180 tablet 09/11/22 [Rx] Metoprolol Succinate [Toprol XL] 50 mg PO BID #180 tab 09/11/22 [Rx] Amiodarone [Cordarone] 200 mg PO QAM 10/31/22 [History] Losartan [Cozaar] 50 mg PO QAM 10/31/22 [History] Potassium Chloride ER [K-Dur 20] 20 meq PO QAM 10/31/22 [History] Rivaroxaban [Xarelto] 20 mg PO QAM 10/31/22 [History] Discharge Disposition: HOME SELF-CARE
== END 2022-11-04 08:15 | disposition expired | DRG 981 ==
LOC: CATHEP 06:40 → 2SICU 16:53 → CATHEP 17:38 → 2CATHESU 17:38 → 2SICU 11-04 08:15 → CATHEP 11-04 08:15
PROVIDERS: ADMIT Internal Medicine Clinical Cardiac Electrophysiology; ATTEND Internal Medicine Clinical Cardiac Electrophysiology
PROC: 5A2204Z Restoration of Cardiac Rhythm, Single (ICD-10-PCS; 2022-11-03)
PROC: 4A023FZ Measurement of Cardiac Rhythm, Percutaneous Approach (ICD-10-PCS; 2022-11-03)
PROC: 4A0234Z Measurement of Cardiac Electrical Activity, Percutaneous Approach (ICD-10-PCS; 2022-11-03)
PROC: 02583ZZ Destruction of Conduction Mechanism, Percutaneous Approach (ICD-10-PCS; principal; 2022-11-03 10:00)
PROC: 02HV33Z Insertion of Infusion Device into Superior Vena Cava, Percutaneous Approach (ICD-10-PCS; 2022-11-04)
PROC: 3E043XZ Introduction of Vasopressor into Central Vein, Percutaneous Approach (ICD-10-PCS; 2022-11-04)
PROC: 0BC68ZZ Extirpation of Matter from Right Lower Lobe Bronchus, Via Natural or Artificial Opening Endoscopic (ICD-10-PCS; 2022-11-04)
PROC: 0BC48ZZ Extirpation of Matter from Right Upper Lobe Bronchus, Via Natural or Artificial Opening Endoscopic (ICD-10-PCS; 2022-11-04)
PROC: 0BC58ZZ Extirpation of Matter from Right Middle Lobe Bronchus, Via Natural or Artificial Opening Endoscopic (ICD-10-PCS; 2022-11-04)
PROC: 0BC38ZZ Extirpation of Matter from Right Main Bronchus, Via Natural or Artificial Opening Endoscopic (ICD-10-PCS; 2022-11-04)
PROC: 03HY32Z Insertion of Monitoring Device into Upper Artery, Percutaneous Approach (ICD-10-PCS; 2022-11-04)
PROC: 4A133B1 Monitoring of Arterial Pressure, Peripheral, Percutaneous Approach (ICD-10-PCS; 2022-11-04)
PROC: 4A133J1 Monitoring of Arterial Pulse, Peripheral, Percutaneous Approach (ICD-10-PCS; 2022-11-04)
DX: T81.11XA Postprocedural cardiogenic shock, initial encounter (principal); I50.23 Acute on chronic systolic (congestive) heart failure; J96.01 Acute respiratory failure with hypoxia; J96.02 Acute respiratory failure with hypercapnia; I31.39 Other pericardial effusion (noninflammatory); N17.9 Acute kidney failure, unspecified; I13.0 Hypertensive heart and chronic kidney disease with heart failure and stage 1 through stage 4 chronic kidney disease, or unspecified chronic kidney disease; E87.29 Other acidosis; I42.8 Other cardiomyopathies; E27.40 Unspecified adrenocortical insufficiency; I48.19 Other persistent atrial fibrillation; J98.19 Other pulmonary collapse; I30.1 Infective pericarditis; Z51.5 Encounter for palliative care; R34 Anuria and oliguria; I97.638 Postprocedural hematoma of a circulatory system organ or structure following other circulatory system procedure; J98.6 Disorders of diaphragm; E11.22 Type 2 diabetes mellitus with diabetic chronic kidney disease; N18.9 Chronic kidney disease, unspecified; R29.6 Repeated falls; R00.0 Tachycardia, unspecified; J98.4 Other disorders of lung; I49.1 Atrial premature depolarization; Z66 Do not resuscitate; Y84.8 Other medical procedures as the cause of abnormal reaction of the patient, or of later complication, without mention of misadventure at the time of the procedure; R60.0 Localized edema; I45.10 Unspecified right bundle-branch block; Z95.5 Presence of coronary angioplasty implant and graft; Z90.89 Acquired absence of other organs; Z79.899 Other long term (current) drug therapy; Z86.718 Personal history of other venous thrombosis and embolism; Z87.19 Personal history of other diseases of the digestive system; Z91.81 History of falling; Z87.891 Personal history of nicotine dependence; Z79.82 Long term (current) use of aspirin; Z86.16 Personal history of COVID-19; Z79.01 Long term (current) use of anticoagulants; Z79.84 Long term (current) use of oral hypoglycemic drugs; Z86.79 Personal history of other diseases of the circulatory system
CPT/HCPCS: 31624; 71045; 80048; 80053; 82805; 83735; 84443; 85025; 85027; 86850; 86900; 86901; 86920; 87070; 87205; 92960; 93656; 93657; 94002; 94003